=== PATIENT | male | born 1950 | race Caucasian/White ===

== ENCOUNTER 2016-07-19 17:18 | Observation (INO) | payer MEDICARE ==
[2016-07-19] MEDS ORDERED: Morphine INJ* 4 MG/ML 1 ML CARPUJECT IV ONE ×3 (17:58→22:06)
[2016-07-19] MEDS ORDERED: Ondansetron INJ* 2 MG/ML VIAL IV ONE (17:58)
[2016-07-19 18:28] LABS: Hematocrit 41 % (42-52); Mean Corpuscular HGB Conc 34 g/dl (31-36); Mean Corpuscular Hemoglobin 31 pg (27-31); Mean Corpuscular Volume 92 fL (80-94); Mean Platelet Volume 8 um3 (7.4-10.4); Red Blood Count 4.46 10^6/ul (4.0-5.4); Red Cell Distribution Width 13 % (10.5-15); White Blood Count 5.6 10^3/ul (3.5-10.8)
--- NOTE | 2016-07-19 18:47 | RAD ---
INDICATION: Right hip pain COMPARISON: CT May 09, 2016 TECHNIQUE: An AP view of the pelvis and AP views of the hip in neutral and abducted position were obtained FINDINGS: Bones: There is a greater tuberosity fracture. There may be extension into the intratrochanteric region and lateral femoral neck. There is no displacement. There are no other fractures. Joint spaces: The hips articulate normally. The joint spaces are preserved. SI joints/symphysis: The SI joints and symphysis are intact. Other: None IMPRESSION: PROXIMAL RIGHT FEMORAL FRACTURE DESCRIBED.
[2016-07-19 18:49] LABS: Albumin 4.4 g/dL (3.2-5.2); BUN/Creatinine Ratio 23.8 (8-20); Calcium 9.4 mg/dL (8.6-10.3); EGFR Non-African American 96.4 (>60); Globulin 2.9 g/dL (2-4); Potassium 4.1 mmol/L (3.5-5.0); Total Bilirubin 0.4 mg/dL (0.2-1.0); Total Protein 7.3 g/dL (6.4-8.9)
--- NOTE | 2016-07-19 19:52 | RAD ---
INDICATION: Right hip fracture COMPARISON: June 24, 2010 TECHNIQUE: An AP portable view obtained at 1930 hours is submitted FINDINGS: Bones/Soft Tissues: There are no acute bony findings. Cardiomediastinal: The cardiomediastinal silhouette is normal. Lungs: There are no infiltrates. There is old granulomatous disease. Pleura: There are no pleural effusions. Other: None IMPRESSION: NO ACTIVE DISEASE.
--- NOTE | 2016-07-19 20:46 | RAD ---
INDICATION: Right hip fracture COMPARISON: Right hip July 19, 2016 TECHNIQUE: Noncontrast axial source images were obtained from the iliac crests through the symphysis pubis. FINDINGS: The previously described fracture of the proximal right femur is confined to the greater trochanter and represents a comminuted fracture. There is no further extension into the intratrochanteric region. The femur is otherwise unremarkable. Both hips articulate normally. There are no fractures the bony pelvis. The SI joints and symphysis are intact. There is chronic L4 spondylolysis with a grade 1 anterolisthesis of L4 and L5. There are prostatic calcifications. The prostate is normal in size.. No free fluid or adenopathy is seen. There is distention of small bowel with multiple mildly dilated and fluid-filled loops. The colon is normal in caliber. The findings are likely related to an ileus. The superficial soft tissues appear normal. The bladder is mildly distended and there is a contour irregularity with mild anterior herniation. IMPRESSION: 1. Fracture of the right greater trochanter. No other acute fractures. 2. Chronic L4 spondylolysis with grade 1 anterolisthesis. 3. Mildly distended urinary bladder as described. 4. Suspect localized ileus. Suggest a follow-up plain radiograph if indicated.
[2016-07-19] MEDS ORDERED: Docusate CAP* 100 MG PO ONE (22:07)
--- NOTE | 2016-07-19 23:26 | ED ---
Lower Extremity - HPI Summary HPI Summary: Pt here w/ Rt hip pain. Fell prior to arrival. Was moving a metal bar when he lost his footing/tripped and couldn't recover balance. Fell onto Rt side and landed on side of hip. Was able to get up (slowly). Son brought him here today - has been sitting in a wheelchair while waiting. Pain worse w/ any movement of his hip. Denies lumbar pain, radiating pain into LE's, numbness, tingling, weakness, change in bowel/bladder function, ab pain, N/V. Denies hitting his head, nek pain, MOORE, change in vision, photo/phonophobia. No known h/o osteoporosis/-penia. - History of Current Complaint Hx Obtained From: Patient Pain Intensity: 2 <Amita Augsute - Last Filed: 07/19/16 23:21> <Saadia Lacy - Last Filed: 07/21/16 19:40> - History of Current Complaint Chief Complaint: EDHipPelvisInjury Stated Complaint: RT HIP PAIN Time Seen by Provider: 07/19/16 17:34 - Allergies/Home Medications Allergies/Adverse Reactions: Allergies Allergy/AdvReac Type Severity Reaction Status Date / Time Tetracycline Allergy Unknown Verified 07/19/16 17:24 Reaction Details PMH/Surg Hx/FS Hx/Imm Hx Previously Healthy: Yes Endocrine/Hematology History: Denies: Hx Anticoagulant Therapy, Hx Blood Disorders, Hx Diabetes Cardiovascular History: Reports: Hx Angina, Hx Atrial Fibrillation - per pt, takes norvasc for this, Hx Hypertension Denies: Hx Coronary Artery Disease, Hx Hypercholesterolemia, Hx Myocardial Infarction, Hx Valvular Heart Disease Respiratory History: Denies: Hx Asthma, Hx Chronic Obstructive Pulmonary Disease (COPD) Musculoskeletal History: Denies: Hx Rheumatoid Arthritis, Hx Osteoporosis Infectious Disease History: No Infectious Disease History: Denies: Traveled Outside the [place] in Last 30 Days - Family History Known Family History: Positive: None Family History: FHx of kidney stones -- Father - Social History Occupation: Retired Lives: With Family Alcohol Use: Weekly Substance Use Type: Reports: Marijuana - occasionally Smoking Status (MU): Never Smoked Tobacco <Amita Auguste - Last Filed: 07/19/16 23:21> Review of Systems Negative: Fatigue Eyes: Negative Negative: Chest Pain Negative: Shortness Of Breath Gastrointestinal: Negative Positive: see HPI Musculoskeletal: Other - see HPI Negative: Bruising Neurological: Negative Psychological: Normal All Other Systems Reviewed And Are Negative: Yes <Amita Auguste - Last Filed: 07/19/16 23:21> Physical Exam Triage Information Reviewed: Yes Vital Signs On Initial Exam: Initial Vitals Temp Pulse Resp BP Pulse Ox 98.2 F 76 15 129/74 100 07/19/16 17:20 07/19/16 17:20 07/19/16 17:20 07/19/16 17:20 07/19/16 17:20 Vital Signs Reviewed: Yes Appearance: Positive: Well-Appearing, No Pain Distress - at rest however pt appears to be in acute distress which is short lived with any hip movement Skin: Positive: Warm, Dry Head/Face: Positive: Normal Head/Face Inspection Eyes: Positive: Normal, EOMI ENT: Positive: Hearing grossly normal, Pharynx normal - mucosa moist Respiratory/Lung Sounds: Positive: Breath Sounds Present Cardiovascular: Positive: Normal, RRR, Pulses are Symmetrical in both Upper and Lower Extremities Abdomen Description: Positive: Nontender, Soft Bowel Sounds: Positive: Present Musculoskeletal: Positive: Limited @ - any movements of LE d/t pain in hip; femur, knee, tibia and ankle/foot are NTTP, Other - Rt lateral hip TTP; SI joint , lumbar spine NTTP. Negative: Edema Left, Edema Right Neurological: Positive: Sensory/Motor Intact - sensory intact and equal B/L - motor limited d/t pain but he is able to move, Alert, Oriented to Person Place, Time Psychiatric: Positive: Normal - [place] Coma Scale Coma Scale Total: 15 <Amita Auguste - Last Filed: 07/19/16 23:21> Vital Signs On Initial Exam: Initial Vitals Temp Pulse Resp BP Pulse Ox 98.2 F 76 15 129/74 100 07/19/16 17:20 07/19/16 17:20 07/19/16 17:20 07/19/16 17:20 07/19/16 17:20 <Saadia Lacy - Last Filed: 07/21/16 19:40> Diagnostics - Vital Signs Vital Signs Temp Pulse Resp BP Pulse Ox 07/19/16 19:45 16 07/19/16 18:57 98.6 F 76 15 113/65 98 07/19/16 18:12 15 07/19/16 17:20 98.2 F 76 15 129/74 100 - Laboratory Lab Results: Lab Results 07/19/16 07/19/16 Range/Units 18:10 18:10 WBC 5.6 (3.5-10.8) 10^3/ul RBC 4.46 (4.0-5.4) 10^6/ul Hgb 14.0 (14.0-18.0) g/dl Hct 41 L (42-52) % MCV 92 (80-94) fL MCH 31 (27-31) pg MCHC 34 (31-36) g/dl RDW 13 (10.5-15) % Plt Count 276 (150-450) 10^3/ul MPV 8 (7.4-10.4) um3 Neut % (Auto) 61.9 (38-83) % Lymph % (Auto) 20.4 L (25-47) % Overton % (Auto) 12.5 H (1-9) % Eos % (Auto) 4.7 (0-6) % Baso % (Auto) 0.5 (0-2) % Absolute Neuts (auto) 3.4 (1.5-7.7) 10^3/ul Absolute Lymphs (auto) 1.1 (1.0-4.8) 10^3/ul Absolute Monos (auto) 0.7 (0-0.8) 10^3/ul Absolute Eos (auto) 0.3 (0-0.6) 10^3/ul Absolute Basos (auto) 0 (0-0.2) 10^3/ul Absolute Nucleated RBC 0.01 10^3/ul Nucleated RBC % 0.1 Sodium 138 (133-145) mmol/L Potassium 4.1 (3.5-5.0) mmol/L Chloride 104 (101-111) mmol/L Carbon Dioxide 27 (22-32) mmol/L Anion Gap 7 (2-11) mmol/L BUN 19 (6-24) mg/dL Creatinine 0.80 (0.67-1.17) mg/dL Est GFR ( Amer) 124.0 (>60) Est GFR (Non-Af Amer) 96.4 (>60) BUN/Creatinine Ratio 23.8 H (8-20) Glucose 99 (70-100) mg/dL Calcium 9.4 (8.6-10.3) mg/dL Total Bilirubin 0.40 (0.2-1.0) mg/dL AST 21 (13-39) U/L ALT 16 (7-52) U/L Alkaline Phosphatase 81 (34-104) U/L Total Protein 7.3 (6.4-8.9) g/dL Albumin 4.4 (3.2-5.2) g/dL Globulin 2.9 (2-4) g/dL Albumin/Globulin Ratio 1.5 (1-3) Result Diagrams: 07/19/16 18:10 07/19/16 18:10 Lab Statement: Any lab studies that have been ordered have been reviewed, and results considered in the medical decision making process. <Amita Auguste - Last Filed: 07/19/16 23:21> - Vital Signs Vital Signs Temp Pulse Resp BP Pulse Ox 07/20/16 01:44 98.5 F 76 16 122/61 97 07/19/16 19:45 16 07/19/16 18:57 98.6 F 76 15 113/65 98 07/19/16 18:12 15 07/19/16 17:20 98.2 F 76 15 129/74 100 - Laboratory Lab Results: Lab Results 07/19/16 07/19/16 Range/Units 18:10 18:10 WBC 5.6 (3.5-10.8) 10^3/ul RBC 4.46 (4.0-5.4) 10^6/ul Hgb 14.0 (14.0-18.0) g/dl Hct 41 L (42-52) % MCV 92 (80-94) fL MCH 31 (27-31) pg MCHC 34 (31-36) g/dl RDW 13 (10.5-15) % Plt Count 276 (150-450) 10^3/ul MPV 8 (7.4-10.4) um3 Neut % (Auto) 61.9 (38-83) % Lymph % (Auto) 20.4 L (25-47) % Overton % (Auto) 12.5 H (1-9) % Eos % (Auto) 4.7 (0-6) % Baso % (Auto) 0.5 (0-2) % Absolute Neuts (auto) 3.4 (1.5-7.7) 10^3/ul Absolute Lymphs (auto) 1.1 (1.0-4.8) 10^3/ul Absolute Monos (auto) 0.7 (0-0.8) 10^3/ul Absolute Eos (auto) 0.3 (0-0.6) 10^3/ul Absolute Basos (auto) 0 (0-0.2) 10^3/ul Absolute Nucleated RBC 0.01 10^3/ul Nucleated RBC % 0.1 Sodium 138 (133-145) mmol/L Potassium 4.1 (3.5-5.0) mmol/L Chloride 104 (101-111) mmol/L Carbon Dioxide 27 (22-32) mmol/L Anion Gap 7 (2-11) mmol/L BUN 19 (6-24) mg/dL Creatinine 0.80 (0.67-1.17) mg/dL Est GFR ( Amer) 124.0 (>60) Est GFR (Non-Af Amer) 96.4 (>60) BUN/Creatinine Ratio 23.8 H (8-20) Glucose 99 (70-100) mg/dL Calcium 9.4 (8.6-10.3) mg/dL Total Bilirubin 0.40 (0.2-1.0) mg/dL AST 21 (13-39) U/L ALT 16 (7-52) U/L Alkaline Phosphatase 81 (34-104) U/L Total Protein 7.3 (6.4-8.9) g/dL Albumin 4.4 (3.2-5.2) g/dL Globulin 2.9 (2-4) g/dL Albumin/Globulin Ratio 1.5 (1-3) Result Diagrams: 07/19/16 18:10 07/19/16 18:10 Lab Statement: Any lab studies that have been ordered have been reviewed, and results considered in the medical decision making process. <Saadia Lacy - Last Filed: 07/21/16 19:40> Re-Evaluation - Re-Evaluation First Eval Change: Unchanged - s/p morphine 4mg Second Eval Change: Improved - morphine 8mg - still painful w/ movement, especially with attempted ambulation w/ walker <Amita Auguste - Last Filed: 07/19/16 23:21> Lower Extremity Course/Dx - Course Course Of Treatment: Pt here w/ fall onto Rt lateral hip earlier tonight. XR and CT reveal Rt greater trochanter fx only. Spoke w/ Dr. Nguyen who states pt may be d/c'd pending pain control and ambulatory ability. He was road tested with a walker after receiving 2 rounds of morphine IV and reports he does not feel he can maneuver getting home tonight in his current condition as he cannot tolerate sitting to standing to get into his car and has steps into his house which would be too difficult to navigate. His is with him and states she will recruit help for him to transition home tomorrow. Discussed with Dr. Schmidt who will admit pt. - Physician Notifications Discussed Care of Patient With: Dr. Nguyen. Dr. Schmidt <Amita Auguste - Last Filed: 07/19/16 23:21> <Saadia Lacy - Last Filed: 07/21/16 19:40> - Diagnoses Provider Diagnoses: Fracture of greater trochanter of right femur Discharge <Amita Auguste - Last Filed: 07/19/16 23:21> <Saadia Lacy - Last Filed: 07/21/16 19:40> - Discharge Plan Condition: Stable Disposition: ADMITTED TO [facility] User Type: Provider - I was available for consult. This patient was seen by the advanced practice provider. The patient was not presented to, seen by, or examined by me <Saadia Lacy - Last Filed: 07/21/16 19:40>
[2016-07-20] MEDS ORDERED: Morphine INJ* 2 MG/ML 1 ML CARPUJECT IV PRN (01:42)
[2016-07-20] MEDS ORDERED: Cyclobenzaprine TAB* 10 MG PO PRN (01:42)
[2016-07-20] MEDS: Heparin VIAL(*) 5000 UNITS/ML VIAL (FIVE THOUSAND) SUBCUT SCH ×2 (06:17→14:04)
[2016-07-20] MEDS ORDERED: oxyCODONE TAB* 5 MG TAB PO PRN (09:44)
[2016-07-20] MEDS ORDERED: Acetaminophen TAB* 325 MG PO PRN (09:44)
[2016-07-20 12:27] VITALS: BP 112/64
--- NOTE | 2016-07-20 13:07 | HP ---
HISTORY AND PHYSICAL: DATE OF ADMISSION: 07/20/16 PCP: Dr. Lawrence Rodriguez. CHIEF COMPLAINT: Hip pain. HISTORY OF PRESENT ILLNESS: The patient is a 66-year-old gentleman who states that he was picking steel out of a steel rack when he fell backwards and fell on the concrete floor. At that point, he knew something was wrong and he was brought to the hospital immediately. When he tries to move, he was in a lot of pain, but when he is stable, he feels fine. At its worse, it is 8/10 in severity. He had a kidney stone about 6 weeks ago and he states it felt similar to the intensity of pain. In the ED, the patient was evaluated, and was found to have a fracture of the right greater trochanter. Orthopedic states that he did not need any surgery for this, but he is being admitted for intractable back pain. PAST MEDICAL HISTORY: Significant for: 1. Hypertension. 2. Hyperlipidemia. ALLERGIES: He has an allergy/adverse reaction to TETRACYCLINE. CURRENT MEDICATIONS: Include: 1. Multivitamin daily. 2. Aspirin 81 mg daily. 3. Amlodipine 20 mg daily. 4. Lipitor 20 mg daily. FAMILY HISTORY: Mother is alive at 88, alive and well. Father is alive at 99, had CVA and MA. SOCIAL HISTORY: Occasional marijuana, 1 to 2 beers a day. No tobacco. He is retired. He just owns rental properties. He is . He has one son. His Barbara Cohen is his healthcare proxy. REVIEW OF SYSTEMS: A 14-point review of systems was completed with the patient. All pertinent positives and negatives are in the history of present illness; otherwise, it is negative. PHYSICAL EXAMINATION GENERAL: Pleasant gentleman lying in bed, in no acute distress. VITAL SIGNS: Temperature 97.8 degrees, heart rate is 68 beats per minute, respiratory rate is 17 breaths per minute, pulse ox 98%, blood pressure 124/61. HEENT: Normocephalic and atraumatic. Pupils equal, round and reactive to light. Moist mucous membranes. NECK: Supple with no JVD, bruits, palpable thyroid or lymphadenopathy. CHEST: Clear to auscultation and percussion bilaterally. CARDIOVASCULAR: S1, S2 appreciated. Regular rate and rhythm. No murmurs, gallops or rubs. ABDOMEN: Positive bowel sounds in all 4 quadrants. Soft, nontender, nondistended. EXTREMITIES: No cyanosis, clubbing or edema. +2 peripheral pulses bilaterally. NEUROLOGICAL: Alert and oriented x3. He moves all extremities. SKIN: No rashes or abnormalities. DIAGNOSTIC STUDIES/LAB DATA: White count is 5.6, hemoglobin 14.0, hematocrit 41, platelets 276. Sodium is 138, potassium 4.1, chloride is 104, CO2 of 27, BUN 19, creatinine 0.80, glucose is 99. X-ray of the hip and pelvis was interpreted by Radiology as proximal right femoral fracture as described. Chest x-ray was interpreted by Radiology as no active disease. Pelvic CT was interpreted by Radiology as fracture of the right greater trochanter, no other acute fractures, chronic L4 spondylolisthesis with grade 1 anterolisthesis, mild distended urinary bladder described, suspect localized ileus, suggest followup plain radiograph needed. ASSESSMENT AND PLAN: 1. Fracture of the right greater trochanter. The patient has intractable pain from this. We will admit the patient, place on appropriate pain management and Physical Therapy to see. He does not require surgery. The patient should be able to be discharged as early as later today. 2. Hypertension. Stable. Blood pressure under adequate control. No change in regimen. 3. Fluids, electrolytes, and nutrition. Regular diet 4. Deep vein thrombosis prophylaxis. Heparin subcu. 5. The patient is a full code. TIME SPENT: Over 75 minutes were spent on this H and P, and more than 40 minutes of which was spent in direct [id number] contact with the patient in evaluation, physical exam, and counseling, and coordination of care. CC: Dr. Lawrence Rodriguez.* [id number]/[facility] #: [id number] [facility]
[2016-07-20] MEDS ORDERED: Atorvastatin* 20 MG TAB PO SCH (17:00)
--- NOTE | 2016-07-21 00:43 | DS ---
DISCHARGE SUMMARY: DATE OF ADMISSION: 07/20/16 DATE OF DISCHARGE: 07/20/16 PRIMARY CARE PROVIDER: Dr. Rodriguez. ORTHOPEDIST: Nelia Nguyen MD DISCHARGE DIAGNOSIS: Right greater trochanter fracture. SECONDARY DIAGNOSES: 1. Hypertension. 2. Hyperlipidemia. 3. Angina. 4. Obstructive sleep apnea. MEDICATIONS: 1. Multivitamin 1 tablet p.o. daily. 2. Aspirin 81 mg p.o. daily. 3. Amlodipine 20 mg p.o. daily. 4. Atorvastatin 20 mg p.o. daily. New medication: Oxycodone 5 mg p.o. q.6 hours p.r.n. pain MDD 20 mg daily, dispensed 10 tablets, no refill. The [facility] Prescription Monitoring Program was consulted and he had last received a 4-day supply of oxycodone on 05/09/16. Reference number is [id number]. HOSPITAL COURSE: Mr. Rivera is a 66-year-old male with a past medical history as stated above that sustained a fall on the concrete floor and developed severe right hip pain. In the emergency room, he had a hip and pelvis x-ray that showed a greater tuberosity fracture, with maybe extension into the intertrochanteric region and lateral femoral neck. He underwent a CT of the pelvis that showed a fracture of the right greater trochanter but no other acute fractures. The patient was admitted for pain management. I discussed this case with consulting orthopedist (Dr. Nguyen), and her recommendation was for pain management, weightbearing as tolerated in the right lower extremity and to follow up with her as outpatient this coming week. The patient actually declined taking oxycodone in the hospital and was able to work with physical therapy after taking Tylenol. He was able to ambulate 200 feet with a rolling walker and although his gait was slow and antalgic, he was felt to be safe and steady with the walker. He was also able to climb 13 stairs and received education about it. He was felt to be safe for discharge home at this time and case aide assisted with arrangements for front wheeled walker for discharge. He received information to call Dr. Nguyen's office tomorrow to schedule his followup appointment. He is medically stable for discharge at this time. PHYSICAL EXAMINATION: Vital Signs: Temperature 98.6, heart rate 71, respiratory rate 16, oxygen saturation 98% on room air, blood pressure 112/64. General: The patient is a pleasant gentleman lying in bed in no acute distress. CV: S1, S2. Regular rate and rhythm. Chest: Breath sounds present bilaterally with no added sounds. Extremities: There is no cyanosis. No hematoma or edema around the right hip. Neuro: He is alert, awake, and oriented x3. He is able to move all 4 extremities. DIET: Heart healthy diet. ACTIVITY: Weightbearing to the lower extremity as tolerated. DISPOSITION: To home. STATUS WHILE IN THE HOSPITAL: Observation. If you need more information, please feel free to call me at [phone] or please obtain the full medical records. TIME SPENT: Approximately 45 minutes were spent to complete this discharge. CC: Dr. Rodriguez; Nelia Nguyen MD* [id number]/[facility] #: [id number] [facility]TD[facility]
== END 2016-07-20 14:45 | disposition home or self-care (01) ==
LOC: ED 17:18 → MED 07-20 03:03
PROVIDERS: ADMIT Internal Medicine; ATTEND Internal Medicine
DX: S72.111A Displaced fracture of greater trochanter of right femur, initial encounter for closed fracture (principal); W01.0XXA Fall on same level from slipping, tripping and stumbling without subsequent striking against object, initial encounter; Y93.89 Activity, other specified; Y92.9 Unspecified place or not applicable; I10 Essential (primary) hypertension; E78.5 Hyperlipidemia, unspecified; I20.9 Angina pectoris, unspecified; G47.33 Obstructive sleep apnea (adult) (pediatric); Z79.82 Long term (current) use of aspirin; Z79.899 Other long term (current) drug therapy; Z88.8 Allergy status to other drugs, medicaments and biological substances
CPT/HCPCS: 36415; 71010; 72192; 80053; 85025; 96372; 96374; 96375; 96376; 99284; A9270-GY; G8978-GP-CL; G8979-GP-CI; J1644; J2270; J2405

== ENCOUNTER 2017-11-20 07:15 | Day surgery (SDC) | payer MEDICARE ==
--- NOTE | 2017-11-13 15:12 | HP ---
PREOPERATIVE HISTORY AND PHYSICAL: DATE OF ADMISSION/SURGERY: 11/20/17 - OR [facility] DATE OF OFFICE VISIT/ENCOUNTER: 11/12/17 ATTENDING SURGEON: Nelia Nguyen MD.* (DICTATED BY TABITHA MARTINEZ) POWERHOUSE TENDER: Dr. Hay. PROCEDURE: Left ring phalanx open reduction and internal fixation. HISTORY OF PRESENT ILLNESS: This is a 67-year-old male who sustained injury to his left ring finger on 10/04/17 when he fell on a rock and jammed his finger. X- rays showed a small fracture of the dorsal aspect of the middle phalanx. Despite splinting and physical therapy, he is still having trouble fully extending the PIP joint. Dr. Nguyen is recommending surgical intervention at this time for best outcome. The patient is followed by Dr. Hay for history of atrial fibrillation and angina. He was last seen in February 2017. We will get clearance from Dr. Hay prior to proceeding with surgery. PAST MEDICAL HISTORY: 1. History of atrial fibrillation. 2. History of angina. 3. Hypertension. 4. Hypercholesterolemia. 5. Sleep apnea, with a CPAP. PAST SURGICAL HISTORY: 1. Tonsillectomy. 2. Facial surgery for a fractured mandible. CURRENT MEDICATIONS: 1. Aspirin 81 mg daily. 2. Calcium daily. 3. Centrum Silver daily. 4. Lipitor 20 mg daily. 5. Nitrostat 0.4 mg 1 sublingual q. 5 minutes up to 3 doses p.r.n. 6. Norvasc 10 mg 1 tab daily. ALLERGIES: No known drug allergies. FAMILY MEDICAL HISTORY: Significant for heart disease, hypertension, stroke, myocardial infarction, and high cholesterol. SOCIAL HISTORY: The patient owns several rental properties. He denies tobacco use. He does smoke marijuana on a regular basis and also drinks alcohol on occasion. REVIEW OF SYSTEMS: General: Negative for fevers, chills, or night sweats, unexplained weight loss or gain. No known anesthesia problems. HEENT: Negative for headache, lightheadedness, syncopal episodes, visual changes. Integumentary: Negative for abrasions, lesions, or open wounds. Cardiothoracic : Negative for hypertension, chest pain, palpitations, edema. Pulmonary: Negative for shortness of breath with exertion, chronic cough, wheezing. GI: Negative for nausea, vomiting, diarrhea, constipation, GERD. : Negative for nocturia, urinary frequency, urgency, history of UTIs, kidney problems. Musculoskeletal: Positive for current complaint. Negative for chronic or intermittent back pain. Neurological: Negative for paresthesias, numbness, history of seizure, stroke, poor balance. Endocrine: Negative for diabetes and thyroid issues. Hematologic: Negative for easy bruising, anemia, bleeding disorders, history of DVT. Infectious Disease: Negative for history of MRSA, hepatitis C, HIV. PHYSICAL EXAMINATION GENERAL: Well-developed, well-nourished, 67-year-old male, in no acute distress. VITAL SIGNS: Height 6 feet tall, weight 160 pounds, pulse rate 74, blood pressure 120/72. HEENT: Normocephalic, atraumatic. Pupils are equal, round, and reactive to light and accommodation. Extraocular movements are intact. Throat is clear. NECK: Supple. No palpable lymph nodes. PULMONARY: Lungs are clear to auscultation bilaterally. No wheezes, rales, or rhonchi. CARDIOVASCULAR: Regular rate and rhythm. S1, S2. No murmurs, rubs, or gallops. No edema. ABDOMEN: Positive bowel sounds, soft, nontender. NEUROLOGICAL: Alert and oriented x3. Cranial nerves II through XII are intact. Sensation is intact to light touch. MUSCULOSKELETAL: On exam of the left ring finger, there is swelling at the PIP joint and there is tenderness to palpation over the dorsal aspect of the joint. There is a flexion deformity at the PIP joint and the patient is unable to fully extend. He has difficulty with full flexion as well. Neurovascular function and skin are intact. IMAGING STUDIES: X-rays of the left ring finger show a small amount of subluxation of the PIP joint and the fracture is not healed. IMPRESSION: Status post left ring finger with insufficient healing and subluxation of PIP joint. PLAN: The patient is scheduled to undergo a left ring phalanx open reduction and internal fixation with Dr. Nguyen on 11/20/17. He will return to the office 10 days postop for followup and suture removal. For postoperative pain management, the patient prefers to use a marijuana/alcohol tincture and we will get clearance from his flush tester, Dr. Hay, prior to proceeding with surgery. TABITHA MARTINEZ [id number]/[facility] #: [id number] [facility]
[~2017-11-20 07:15] MED LIST: Buffered Lidocaine 0.9% SYRIN* 5 ML/SYR SYRINGE INTRADERM ONE
[2017-11-20] MEDS ORDERED: ceFAZolin 2 GM PREMIX (*) 2 GM/50 ML BAG IVPB ONE (07:25)
[2017-11-20] MEDS ORDERED: fentaNYL* 50 MCG/ML 2 ML VIAL (100 MCG VIAL) ONE (08:10)
[2017-11-20] MEDS ORDERED: Lidocaine 2% PF * 5 ML VIAL ONE (08:12)
[2017-11-20] MEDS ORDERED: Propofol* 10 MG/ML 20 ML BTL IV PUSH ONE ×2 (08:12)
[2017-11-20] MEDS ORDERED: Lidocaine 1% INJ* 10 MG/ML 30 ML SDV ONE (08:28)
[2017-11-20] MEDS ORDERED: oxyCODONE/Acetamin 5/325 MG* TAB PO PRN (08:48)
[2017-11-20] MEDS ORDERED: fentaNYL* 50 MCG/ML 2 ML VIAL (100 MCG VIAL) IV PRN (08:48)
[2017-11-20] MEDS ORDERED: oxyCODONE TAB* 5 MG TAB PO PRN (08:48)
[2017-11-20] MEDS ORDERED: Naloxone* 0.4 MG/ML 1 ML VIAL IV PRN (08:48)
[2017-11-20] MEDS ORDERED: Acetaminophen TAB* 325 MG PO PRN (08:48)
[2017-11-20] MEDS ORDERED: HYDROmorphone INJ* 1 MG/ML CARPUJECT SYRINGE IV PRN (08:48)
[2017-11-20] MEDS ORDERED: Ondansetron INJ* 2 MG/ML VIAL IV PRN (08:48)
[2017-11-20] MEDS ORDERED: Ketorolac INJ* 30 MG/ML 1 ML VIAL ONE (09:14)
[2017-11-20 09:58] VITALS: BP 112/69
--- NOTE | 2017-11-20 22:00 | RAD ---
INDICATION: Percutaneous pinning left ring finger COMPARISON: None FINDINGS: 47 seconds of fluoroscopy were provided for the orthopedics department. Fluoroscopic spot imaging of the left ring finger were obtained for operative control and show percutaneous pinning at the PIP joint . CPT II Codes: G9500 (fluoro time doc)
--- NOTE | 2017-11-21 04:25 | OP ---
DATE OF OPERATION: 11/20/17 - [facility] DATE OF : 48 SURGEON: Dr. Nguyen TURRET PRESS OPERATOR: TABITHA Pickard ANESTHESIA: Local MAC. PRE-OP DIAGNOSIS: Left ring finger middle phalanx fracture, subluxation at the PIP joint. POST-OP DIAGNOSIS: Left ring finger middle phalanx fracture, subluxation at the PIP joint. OPERATIVE PROCEDURE: Open reduction and internal fixation, left ring finger middle phalanx. ESTIMATED BLOOD LOSS: Zero. TOURNIQUET TIME: About 30 minutes. INDICATIONS FOR PROCEDURE: Cornel is a 59-year-old male who injured his left ringer finger. He has a fracture of the dorsal aspect of the middle phalanx at the PIP joint which has gradually displaced and the joint has subluxed. He presents for ORIF of left ringer finger middle phalanx. DESCRIPTION OF PROCEDURE: The patient was brought to the operating room, was given a sedation anesthetic and digital block with 10 cc of 1% plain lidocaine. The skin of the left hand and forearm was prepped and draped in the usual sterile fashion. The hand and forearm were exsanguinated and the tourniquet elevated to 250 mmHg. A curved longitudinal incision was made centered over the PIP joint and we dissected sharply full thickness skin flap down to the extensor mechanism. The fracture fragment was carefully dissected sharply away from the PIP joint. It was still well attached to the extensor tendon. I was able to gain access to the joint then by flexing the joint and the collateral ligaments, which were scarred down were partially incised so that I could reduce the main portion of the middle phalanx back to the proximal phalanx. Next, 2 holes for mini Mitek suture anchors were drilled into the metaphyseal area of the middle phalanx and then the joint was reduced and a single 0.035 inch K-wire was driven through the proximal phalanx into the volar aspect of the middle phalanx. It position was checked on the C-arm in the AP and lateral views, as was the position of the suture anchors. All were found to be in good position. The sutures were then driven through the bony fragment attached to the extensor tendon after the fracture bed was curetted and then they were tied to reapproximate this fragment to the main fragment of the bone at the PIP joint. The wound was irrigated. The remainder of the extensor mechanism was repaired with a 2-0 Ethibond suture. The skin edges were reapproximated with 4- 0 nylon suture. The wound was dressed with Xeroform, 4x4, Webril, Coban and the splint with the MP joint flexed, PIP straight and the DIP joint free to move. The patient tolerated the procedure well and was brought to the recovery room in good condition. [id number] #: [id number] MTDEvie
== END 2017-11-20 10:13 | disposition home or self-care (01) ==
LOC: OREAST 07:15
PROVIDERS: ATTEND Orthopaedic Surgery
DX: S62.625A Displaced fracture of middle phalanx of left ring finger, initial encounter for closed fracture (principal); I48.91 Unspecified atrial fibrillation; I20.9 Angina pectoris, unspecified; I10 Essential (primary) hypertension; E78.5 Hyperlipidemia, unspecified; G47.33 Obstructive sleep apnea (adult) (pediatric); W19.XXXA Unspecified fall, initial encounter; Y92.9 Unspecified place or not applicable
CPT/HCPCS: 76000; C1713; C1776; J0690; J1885; J2704; J3010

== ENCOUNTER 2018-12-09 06:45 | Day surgery (SDC) | payer MEDICARE ==
[2018-12-09] MEDS ORDERED: Bupivacaine 0.25% SDV* 30 ML ONE (07:41)
[2018-12-09 09:13] VITALS: BP 121/59
--- NOTE | 2018-12-09 13:39 | OP ---
DATE OF OPERATION: 12/09/18 - [facility] DATE OF : 48 SURGEON: Aung Alas MD. ROD PULLER AND COILER: TABITHA Catalan. ANESTHESIOLOGIST: None. ANESTHESIA: Local only with 1% lidocaine with epinephrine and bicarbonate. 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 OPERATIVE PROCEDURE: 1. Left ring finger extensor tendon tenolysis. 2. Release of left ring finger proximal interphalangeal joint contracture. INDICATIONS: Cornel has had a central slip avulsion fracture. It was treated surgically on a delayed basis. It looks like the bone healed, but he has developed a loss of the ability to fully flex the finger down. This is secondary to some loss of full flexion at the DIP joint as well, but that is more of a flexor tendon problem. The PIP joint has a rigid contracture. We talked about risks and benefits. He understands the risk of incomplete recovery despite full release intraoperatively with recurrent stiffness. He knows he will have to work hard to get back the FDP pulling through completely on the benedict side as well. ESTIMATED BLOOD LOSS: 5 mL. COMPLICATIONS: None. FINDINGS: See above and below. DESCRIPTION OF PROCEDURE: Cornel was seen in the preoperative holding area. The correct side and site of the procedure were identified. I infiltrated the operative area with buffered lidocaine. We came back to the operating room, where the arm was prepped and draped in the usual fashion and time-out was performed. I placed a little bit of Marcaine around my prior site of the digital block, went ahead and placed a finger tourniquet on the finger. I reopened the prior incision and extended just a little bit proximally. There was dense scar tissue attached to the tendons. I went ahead and performed a full extensor tendon tenolysis, releasing the scar tissue that developed between the skin and the subcutaneous tissue in the tendon, but also I opened up the intervals between the central slips and the lateral band and performed a full tenolysis between the bone and the extensor tendon, where most of the tendon adhesions were. Once I had performed a full tenolysis, I could flex and extend the finger. The contracture was improved, but certainly not fully corrected. I took the [place] blade and I released a little bit of the origins of the radial and ulnar collateral ligaments as well as the dorsal capsule in its entirety. The dorsal capsule was excised. I then had to flex and extend the fingers and we achieved full correction of the PIP joint extension contracture. I performed a full manipulation to release any remaining little bands of tissue that might be persisting. At this point, I had full passive flexion compared to the adjacent digits. He also was able to generate full active flexion at the PIP joint. The DIP joint had some residual lag. He was not getting full pull-through at the FDP tendon; however, I could passively flex the DIP joint fully. At this point, everything was looking good. We irrigated out the wound and I placed a couple of 5- 0 Prolene stitches, where I had developed the split between the central slip and the lateral band. The wound was irrigated out again. Skin was closed with 4-0 nylon. A very thin soft dressing was applied and tourniquet was released. He was taken to the recovery room in stable condition. [id number] #: [id number] KINZA
== END 2018-12-09 09:24 | disposition home or self-care (01) ==
LOC: OREAST 06:45
PROVIDERS: ATTEND Orthopaedic Surgery Hand Surgery
DX: M24.542 Contracture, left hand (principal); I10 Essential (primary) hypertension; G47.33 Obstructive sleep apnea (adult) (pediatric); E78.00 Pure hypercholesterolemia, unspecified; I48.0 Paroxysmal atrial fibrillation; I20.9 Angina pectoris, unspecified; Z79.82 Long term (current) use of aspirin
CPT/HCPCS: J3490

== ENCOUNTER 2019-01-27 21:23 | Emergency (ER) | payer MEDICARE ==
[2019-01-27] MEDS ORDERED: Naproxen TAB* 250 MG PO ONE (22:20)
--- NOTE | 2019-01-27 23:19 | ED ---
Upper Extremity Pain - HPI Summary HPI Summary: 68-year-old male presents with complaints of left wrist pain after accidentally falling onto his outstretched arm. Patient states that he was trying to push some garbage down into the garbage can with his foot when he lost his balance and fell. States this occurred approximately an hour and a half prior to arrival. He complains of pain to the radial and ulnar aspect of the wrist. Patient reports significant bruising and swelling. Denies any numbness or tingling. - History of Current Complaint Chief Complaint: EDExtremityUpper Stated Complaint: LT WRIST INJUJRT PER PT Time Seen by Provider: 01/27/19 22:12 Hx Obtained From: Patient - Allergies/Home Medications Allergies/Adverse Reactions: Allergies Allergy/AdvReac Type Severity Reaction Status Date / Time No Known Allergies Allergy Verified 01/27/19 21:43 PMH/Surg Hx/FS Hx/Imm Hx Endocrine/Hematology History: Denies: Hx Anticoagulant Therapy, Hx Blood Disorders, Hx Diabetes Cardiovascular History: Reports: Hx Angina, Hx Atrial Fibrillation - per pt, takes norvasc for this, Hx Coronary Artery Disease, Hx Hypercholesterolemia, Hx Hypertension - ON MEDS PT. STATES CONTROLLED, Other Cardiovascular Problems/ Disorders - OCCASIONAL AFIB Denies: Hx Deep Vein Thrombosis, Hx Myocardial Infarction, Hx Valvular Heart Disease Respiratory History: Reports: Hx Sleep Apnea Denies: Hx Asthma, Hx Chronic Obstructive Pulmonary Disease (COPD) History: Reports: Hx Kidney Stones Musculoskeletal History: Reports: Other Musculoskeletal History - BROKEN FINGER Denies: Hx Rheumatoid Arthritis, Hx Osteoporosis Sensory History: Reports: Hx Cataracts - BILAT Denies: Hx Contacts or Glasses, Hx Hearing Aid Opthamlomology History: Reports: Hx Cataracts - BILAT Denies: Hx Contacts or Glasses - Surgical History Surgery Procedure, Year, and Place: FIXED LT CHEEK 2007;BI-LATERAL CATARACT 1989; TONSILLECTOMY A CHILD Hx Anesthesia Reactions: No Infectious Disease History: No Infectious Disease History: Denies: Hx Clostridium Difficile, Traveled Outside the [place] in Last 30 Days - Family History Known Family History: Positive: Non-Contributory Family History: FHx of kidney stones -- Father - Social History Occupation: Employed Full-time Lives: With Family Alcohol Use: Occasionally Alcohol Amount: BEER X 5 WEEKLY Substance Use Type: Reports: Marijuana Substance Use Comment - Amount & Last Used: SMOKES 1 X WEEKLY Smoking Status (MU): Never Smoked Tobacco Review of Systems Constitutional: Negative Cardiovascular: Negative Respiratory: Negative Gastrointestinal: Negative Genitourinary: Negative Musculoskeletal: Other - See HPI Positive: Bruising Neurological: Negative All Other Systems Reviewed And Are Negative: Yes Physical Exam - Summary Physical Exam Summary: GENERAL APPEARANCE: Alert and cooperative adult male who appears to be in no acute distress. CARDIAC: Normal S1 and S2. No S3, S4 or murmurs. Rhythm is regular. There is no peripheral edema, cyanosis or pallor. Extremities are warm and well perfused. Capillary refill is less than 2 seconds. Peripheral pulses intact. LUNGS: Clear to auscultation without rales, rhonchi, wheezing or diminished breath sounds. ABDOMEN: Positive bowel sounds. Soft, nondistended, nontender. No guarding or rebound. No masses or hepatosplenomegally. MUSKULOSKELETAL: Normal muscular development. Normal gait. EXTREMITIES: Tenderness over the distal left ulna and radius with no gross deformity. Significant ecchymosis and edema were present. Circulation and sensation was intact. SKIN: Skin normal color, texture and turgor. Triage Information Reviewed: Yes Vital Signs On Initial Exam: Initial Vitals Temp Pulse Resp BP Pulse Ox 98.7 F 68 16 138/84 98 01/27/19 21:40 01/27/19 21:40 01/27/19 21:40 01/27/19 21:40 01/27/19 21:40 Vital Signs Reviewed: Yes Diagnostics - Vital Signs Vital Signs Temp Pulse Resp BP Pulse Ox 01/27/19 21:40 98.7 F 68 16 138/84 98 - Laboratory Lab Statement: Any lab studies that have been ordered have been reviewed, and results considered in the medical decision making process. - Radiology No standard instances Radiology Interpretation Completed By: ED Physician - Nondisplaced fracture of the distal radius. Nondisplaced fracture of the distal ulna. Mildly displaced fracture of the ulnar styloid. Course/Dx - Course Course Of Treatment: 68-year-old male presents with complaints of left wrist pain after accidentally falling onto his outstretched arm. Patient states that he was trying to push some garbage down into the garbage can with his foot when he lost his balance and fell. States this occurred approximately an hour and a half prior to arrival. He complains of pain to the radial and ulnar aspect of the wrist. Patient reports significant bruising and swelling. Denies any numbness or tingling. Afebrile. Vital signs stable. Patient had tenderness over the distal left ulna and radius with no gross deformity. Significant ecchymosis and edema were present. Circulation and sensation was intact. Patient was given naproxen 500 mg PO for pain. My preliminary read the x-ray revealed a mildly displaced fracture of the ulnar styloid, a nondisplaced fracture of the distal ulna, and a nondisplaced fracture of the distal radius. He was placed in a volar short arm splint by myself using Ortho-Glass. Circulation sensation were normal pre-and post-application. Recommending conservative treatment including [id number] analgesics and RICE. He is to follow-up with orthopedic surgery and 3-5 days for further evaluation and treatment. Splint care, and anticipatory guidance, and warning symptoms were reviewed with the patient. Verbalizes understanding and agrees with plan of care. - Diagnoses Provider Diagnoses: Nondisplaced fracture of distal end of left ulna, Nondisplaced fracture of distal end of left radius, Displaced fracture of styloid process of left ulna Discharge - Sign-Out/Discharge Documenting (check all that apply): Patient Departure Patient Received Moderate/Deep Sedation with Procedure: No - Discharge Plan Condition: Stable Disposition: HOME Patient Education Materials: Wrist Fracture in Adults (ED), Splint Care (ED) Referrals: Lawrence Rodriguez MD [Primary Care Provider] - Aung Jarrett MD [Medical Doctor] - 3 Days (Call tomorrow for appointment.) Additional Instructions: The x-ray performed in the clinic today showed evidence of a fracture to the distal radius and ulna including a mildly displaced fracture of the ulnar styloid process. Rest the arm as much as possible. You will need to wear the splint that was applied at all times. Do not get this wet. Apply ice to the affected area for 15-20 minutes at least 4 times a day to help with the pain and swelling. Elevate the arm to help reduce swelling. Take acetaminophen (Tylenol) or ibuprofen (Advil, Motrin) according to directions as needed for pain. Follow up with orthopedic surgery in 3-5 days for further evaluation and treatment. Call tomorrow for an appointment. Seek immediate medical attention if you have severe pain not managed with pain medication, develop numbness or tingling in the hand or fingers, or any worsening of symptoms. - Billing Disposition and Condition Condition: STABLE Disposition: Home - Attestation Statements Provider Attestation: pt seen by midlevel provider independently, based on their assessment, it was not necessary to present the case to me but I was available for consultation. I did not form a physician-patient relationship with the patient. The chart however, has been reviewed. am signing this note strictly in an administrative capacity.
[2019-01-27 23:42] VITALS: BP 136/72
== END 2019-01-27 23:34 | disposition home or self-care (01) ==
LOC: ED 21:23
DX: S52.602A Unspecified fracture of lower end of left ulna, initial encounter for closed fracture (principal); S52.502A Unspecified fracture of the lower end of left radius, initial encounter for closed fracture; S52.612A Displaced fracture of left ulna styloid process, initial encounter for closed fracture; W19.XXXA Unspecified fall, initial encounter; Y92.9 Unspecified place or not applicable; I25.119 Atherosclerotic heart disease of native coronary artery with unspecified angina pectoris; I48.91 Unspecified atrial fibrillation; E78.00 Pure hypercholesterolemia, unspecified; I10 Essential (primary) hypertension; Z79.899 Other long term (current) drug therapy
CPT/HCPCS: 99282; A9270-GY

== ENCOUNTER 2019-02-04 02:57 | Emergency (ER) | payer MEDICARE ==
--- NOTE | 2019-02-04 03:31 | ED ---
Upper Extremity Pain - HPI Summary HPI Summary: This pt is a 68 y/o [facility] worsening left upper extremity pain since yesterday. He notes he had an accidental fall on 01/27/19 with a back stretched arm and sustained a left wrist fracture. Pt followed up with orthopedics and had a cast placed 3 days ago. Ever since pt notes he has been having pain in his left arm, pt states the left wrist pain is better than the pain that is going up his left arm. He notes "it seems like the pain is growing upwards." He has taken muscle relaxers with no effect. Pt reports his pain has been worsening in the past 24 hours. He has also been taking ibuprofen with no relief. Pt states a splint he had prior to his cast was better and did not cause him any pain. - History of Current Complaint Stated Complaint: PAIN IN ARM PER PT Hx Obtained From: Patient Mechanism Of Injury: Blunt Trauma, Fall From A Standing Position Onset/Duration: Still Present Timing: Lasting Days Severity Currently: Severe Pain Location: Other: - Left upper extremity Aggravating Factor(s): Nothing Alleviating Factor(s): Nothing Associated Signs & Symptoms: Positive: Negative - Allergies/Home Medications Allergies/Adverse Reactions: Allergies Allergy/AdvReac Type Severity Reaction Status Date / Time No Known Allergies Allergy Verified 02/04/19 03:03 Home Medications: Home Medications Albuterol HFA INHALER* [Ventolin HFA Inhaler*] 2 puff INH Q4H PRN 02/04/19 [ History Confirmed 02/04/19] Cyclobenzaprine HCl 5 mg PO TID PRN 02/04/19 [History Confirmed 02/04/19] Magnesium Oxide TAB* [MagOx 400 TAB*] 400 mg PO DAILY 02/04/19 [History Confirmed 02/04/19] Metoprolol Succinate 25 mg PO DAILY 02/04/19 [History Confirmed 02/04/19] PMH/Surg Hx/FS Hx/Imm Hx Endocrine/Hematology History: Denies: Hx Anticoagulant Therapy, Hx Blood Disorders, Hx Diabetes Cardiovascular History: Reports: Hx Angina, Hx Atrial Fibrillation - per pt, takes norvasc for this, Hx Coronary Artery Disease, Hx Hypercholesterolemia, Hx Hypertension - ON MEDS PT. STATES CONTROLLED, Other Cardiovascular Problems/ Disorders - OCCASIONAL AFIB Denies: Hx Deep Vein Thrombosis, Hx Myocardial Infarction, Hx Valvular Heart Disease Respiratory History: Reports: Hx Sleep Apnea Denies: Hx Asthma, Hx Chronic Obstructive Pulmonary Disease (COPD) History: Reports: Hx Kidney Stones Musculoskeletal History: Reports: Other Musculoskeletal History - BROKEN FINGER Denies: Hx Rheumatoid Arthritis, Hx Osteoporosis Sensory History: Reports: Hx Cataracts - BILAT Denies: Hx Contacts or Glasses, Hx Hearing Aid Opthamlomology History: Reports: Hx Cataracts - BILAT Denies: Hx Contacts or Glasses - Surgical History Surgery Procedure, Year, and Place: FIXED LT CHEEK 2007;BI-LATERAL CATARACT 1989; TONSILLECTOMY A CHILD Hx Anesthesia Reactions: No Infectious Disease History: No Infectious Disease History: Denies: Hx Clostridium Difficile, Traveled Outside the [place] in Last 30 Days - Family History Family History: FHx of kidney stones -- Father - Social History Alcohol Use: Occasionally Alcohol Amount: BEER X 5 WEEKLY Substance Use Type: Reports: Marijuana Substance Use Comment - Amount & Last Used: SMOKES 1 X WEEKLY Smoking Status (MU): Never Smoked Tobacco Review of Systems Negative: Fever, Chills Positive: Palpitations Respiratory: Negative Musculoskeletal: Other - POSITIVE: left upper extremity All Other Systems Reviewed And Are Negative: Yes Physical Exam - Summary Physical Exam Summary: Appearance: Well-appearing, Well-nourished, lying in bed comfortable Skin: Warm, dry, no obvious rash Eyes: sclera anicteric, no conjunctival pallor ENT: mucous membranes moist Neck: deferred Respiratory: No signs of respiratory distress Cardiovascular: Appears well perfused, pulses are nml Abdomen: deferred Musculoskeletal: Short arm cast in left arm that appears somewhat loose. No significant swelling in the digits distal to the cast. Left shoulder seems to have good ROM and does not have focal tenderness. Neurological: Awake and alert, mentation is normal, speech is fluent and appropriate Psychiatric: affect is normal, does not appear anxious or depressed Triage Information Reviewed: Yes Vital Signs On Initial Exam: Initial Vitals Temp Pulse Resp BP Pulse Ox 97.6 F 95 16 186/86 98 02/04/19 03:00 02/04/19 03:00 02/04/19 03:00 02/04/19 03:00 02/04/19 03:00 Vital Signs Reviewed: Yes Procedures - Splinting Left Upper Extremity Location: left wrist Splint: volar Pre-Proc Neuro Vasc Exam: normal Post-Proc Neuro Vasc Exam: normal Diagnostics - Vital Signs Vital Signs Temp Pulse Resp BP Pulse Ox 02/04/19 03:00 97.6 F 95 16 186/86 98 - Laboratory Lab Statement: Any lab studies that have been ordered have been reviewed, and results considered in the medical decision making process. - EKG 03:35 Cardiac Rate: NL - at 77 bpm EKG Rhythm: Sinus Rhythm Summary of EKG Findings: NSR at 77 BPM, P waves, QRS complex, and T waves are within normal limits, T waves and intervals are normal, no ischemic changes. This is a normal EKG. Course/Dx - Course Assessment/Plan: Pt is a 68 y/o male presenting to [facility] c/o worsening left upper extremity pain since yesterday. He sustained a left wrist fracture on 01/27. Pt followed up with orthopedics and had a cast placed 3 days ago. Ever since pt notes he has been having pain in his left arm, pt states the left wrist pain is better than the pain that is going up his left arm. Troponin is 0.00. EKG shows normal sinus rhythm at 77 bpm. I took off his cast and placed him in a volar splint per patient's request. Pt is neurovascular intact pre and post procedure. He was discharged home with follow up from orthopedics. - Diagnoses Provider Diagnoses: Shoulder pain Discharge - Sign-Out/Discharge Documenting (check all that apply): Patient Departure - Discharge home Patient Received Moderate/Deep Sedation with Procedure: No - Discharge Plan Condition: Good Disposition: HOME Patient Education Materials: Shoulder Pain (ED) Referrals: Lawrence Rodriguez MD [Primary Care Provider] - Additional Instructions: Call the orthopedic office tomorrow to let them know that we removed the cast, they will likely want to replace it soon and check out the rest of the pains in the shoulder. Using the splint will take some stress off the shoulder in the meantime. The cardiac tests we ran were negative, so no worries about this being a separate cardiac issue. - Billing Disposition and Condition Condition: GOOD Disposition: Home - Attestation Statements Document Initiated by Scribe: Yes Documenting Scribe: Jes Rubin Provider For Whom Scribe is Documenting (Include Credential): Arnulfo Pascual MD Scribe Attestation: Jes Blanco, scribed for Arnulfo Pascual MD on 02/05/19 at 0615. Scribomaira Documentation Reviewed: Yes Provider Attestation: The documentation as recorded by the scribe, Jes Rubin accurately reflects the service I personally performed and the decisions made by me, Arnulfo Pascual MD Status of Scrinez Document: Viewed
[2019-02-04 05:09] VITALS: BP 160/95
== END 2019-02-04 05:08 | disposition home or self-care (01) ==
LOC: ED 02:57
DX: M25.512 Pain in left shoulder (principal); I48.91 Unspecified atrial fibrillation; I25.119 Atherosclerotic heart disease of native coronary artery with unspecified angina pectoris; E78.00 Pure hypercholesterolemia, unspecified; I10 Essential (primary) hypertension; Z79.899 Other long term (current) drug therapy
CPT/HCPCS: 36415; 84484; 93005; 99282

== ENCOUNTER 2019-03-10 18:26 | Observation (INO) | payer MEDICARE ==
--- NOTE | 2019-03-10 18:55 | ED ---
Neurological HPI - HPI Summary HPI Summary: Jaqueline iqbal has been called for the patient at 1838. Time seen by provider: 184. 68 year old M presenting to [facility] with a chief complaint of neurological deficit since earlier today 03/10/19. Patient has been experiencing vision problems since his heart catheterzation procedure earlier today. Patient describes his vision as 'shutters' comparable to 'old movies', flashing. Patient reports inability to read, headache, and dizziness. At one point the patient had a near-syncopal event. The neurological deficit episode lasted approximately twenty minutes. Patient was aware and oriented upon arrival to the ED. Vision has improved since onset, and patient denies any other problems except a persistent headache. Patient currently does not feel anything unusual. - History of Current Complaint Chief Complaint: EDNeurologicalDeficit Stated Complaint: POSS BLOOD CLOT PER PT Time Seen by Provider: 03/10/19 18:41 Hx Obtained From: Patient Onset/Duration: Started hours ago, Resolved Onset Severity: Moderate Current Severity: Mild Neurological Deficit Location: Generalized Headache Location: Diffuse (Right), Diffuse (Left) Pain Intensity: 0 Pain Scale Used: 0-10 Numeric Character: Dizzy, Visual Changes, Other: - a near-syncopal event Episode Lasting: Seconds/Minutes - 20 minutes, approximately Frequency: Episodes x___ - 1 Aggravating: Unknown, Nothing Alleviating: Nothing Associated Signs and Symptoms: Positive: Visual Changes, Headache, Dizziness TPA Considered: Yes - TPA was considered but rejected because of patient's rx and unknown onset Related Hx: Anticoagulants - ASA - Allergy/Home Medications Allergies/Adverse Reactions: Allergies Allergy/AdvReac Type Severity Reaction Status Date / Time No Known Allergies Allergy Verified 03/10/19 10:44 PMH/Surg Hx/FS Hx/Imm Hx Endocrine/Hematology History: Denies: Hx Anticoagulant Therapy, Hx Blood Disorders, Hx Diabetes Cardiovascular History: Reports: Hx Angina, Hx Atrial Fibrillation - per pt, takes norvasc for this, Hx Coronary Artery Disease, Hx Hypercholesterolemia, Hx Hypertension - ON MEDS PT. STATES CONTROLLED, Other Cardiovascular Problems/ Disorders - OCCASIONAL AFIB Denies: Hx Deep Vein Thrombosis, Hx Myocardial Infarction, Hx Pacemaker/ICD, Hx Valvular Heart Disease Respiratory History: Reports: Hx Sleep Apnea Denies: Hx Asthma, Hx Chronic Obstructive Pulmonary Disease (COPD) History: Reports: Hx Kidney Stones Denies: Hx Chronic Renal Failure Musculoskeletal History: Reports: Other Musculoskeletal History - BROKEN FINGER Denies: Hx Rheumatoid Arthritis, Hx Osteoporosis Sensory History: Reports: Hx Cataracts - BILAT Denies: Hx Contacts or Glasses, Hx Hearing Aid Opthamlomology History: Reports: Hx Cataracts - BILAT Denies: Hx Contacts or Glasses - Surgical History Surgical History: Yes Surgery Procedure, Year, and Place: FIXED LT CHEEK 2007;BI-LATERAL CATARACT 1989; TONSILLECTOMY A CHILD. cardiac catheterization 03/10/19. Hx Anesthesia Reactions: No Infectious Disease History: No Infectious Disease History: Denies: Hx Clostridium Difficile, Traveled Outside the [place] in Last 30 Days - Family History Known Family History: Positive: Renal Disease Family History: FHx of kidney stones -- Father - Social History Alcohol Use: Occasionally Alcohol Amount: 2/week Hx Substance Use: Yes Substance Use Type: Reports: Marijuana Substance Use Comment - Amount & Last Used: weekly Hx Tobacco Use: No Smoking Status (MU): Never Smoked Tobacco Review of Systems - ROS Summary Review of Systems Summary: Code iqbal called 1838 Negative: Fever Eyes: Other - flashy, shutter-like vision, resolved since onset Neurological: Other - dizziness Positive: Headache, Syncope - near-syncopal event All Other Systems Reviewed And Are Negative: Yes Physical Exam - Summary Physical Exam Summary: Appearance: The patient is well-nourished in no acute distress and in no acute pain. Skin: The skin is warm and dry, and skin color reflects adequate perfusion. HEENT: The head is normocephalic and atraumatic. The pupils are equal and reactive. The conjunctivae are clear and without drainage. Nares are patent and without drainage. Mouth reveals moist mucous membranes, and the throat is without erythema and exudate. The external ears are intact. The ear canals are patent and without drainage. The tympanic membranes are intact. Neck: The neck is supple with full range of motion and non-tender. There are no carotid bruits. There is no neck vein distension. Respiratory: Chest is non-tender. Lungs are clear to auscultation and breath sounds are symmetrical and equal. Cardiovascular: Heart is regular rate and rhythm. There is no murmur or rub auscultated. There is no peripheral edema and pulses are symmetrical and equal. Abdomen: The abdomen is soft and non-tender. There are normal bowel sounds heard in all four quadrants and there is no organomegaly palpated. Musculoskeletal: There is no back tenderness noted. Extremities are non-tender with full range of motion. There is good capillary refill. There is no peripheral edema or calf tenderness elicited. Neurological: Patient is alert and oriented to person, place and time. The patient has symmetrical motor strength in all four extremities. Cranial nerves are grossly intact. Deep tendon reflexes are symmetrical and equal in all four extremities. GCS 15. NIH scale 0. Psychiatric: The patient has an appropriate affect and does not exhibit any anxiety or depression. Triage Information Reviewed: Yes Vital Signs On Initial Exam: Initial Vitals Temp Pulse Resp BP Pulse Ox 98.4 F 68 18 153/76 97 03/10/19 18:35 03/10/19 18:35 03/10/19 18:35 03/10/19 18:35 03/10/19 18:35 Vital Signs Reviewed: Yes - Klever Coma Scale Best Eye Response: 4 - Spontaneous Best Motor Response: 6 - Obeys Commands Best Verbal Response: 5 - Oriented Coma Scale Total: 15 Diagnostics - Vital Signs Vital Signs Temp Pulse Resp BP Pulse Ox 03/10/19 18:35 98.4 F 68 18 153/76 97 - Laboratory Result Diagrams: 03/10/19 18:45 03/10/19 18:45 Lab Statement: Any lab studies that have been ordered have been reviewed, and results considered in the medical decision making process. - CT Brain CT CT Interpretation Completed By: Radiologist Summary of CT Findings: IMPRESSION: 1. No acute intracranial hemorrhage or acute territorial type infarct. 2. Mild atrophy. 3. If further evaluation is clinically indicated, an MRI of the brain is. recommended. The ED physician has reviewed this report. - EKG 1855 Cardiac Rate: NL EKG Rhythm: Sinus Rhythm ST Segment: Normal Ectopy: None Summary of EKG Findings: Normal sinus rhythm, normal ST, no ectopy, no STEMI NIH Scale - NIH Scale Level of Consciousness: Alert/Keenly Responsive Ask Patient the Month and His/Her Age: Both Correct Ask Pt to Open/Close Eyes and Configuration Engineer/Release Non-Paretic Hand: Both Correctly Best Gaze (Only Horizontal Eye Movement): Normal Visual Field Testing: No Visual Loss Facial Paresis-Pt to Smile & Close Eyes or Grimace Symmetry: Normal/Symmetrical Motor Function - Right Arm: No Drift-Holds 10 Seconds Motor Function - Left Arm: No Drift-Holds 10 Seconds Motor Function - Right Leg: No Drift-Holds 10 Seconds Motor Function - Left Leg: No Drift-Holds 10 Seconds Limb Ataxia-Must be out of Proportion to Weakness Present: Absent Sensory (Use Pinprick to Test Arms/Legs/Trunk/Face): Normal Best Language (Describe Picture, Name Items): No Aphasia Dysarthria (Read Several Words): Normal Extinction and Inattention: No Abnormality Total Score: 0 Re-Evaluation - Re-Evaluation First Eval Re-Evaluation Time: 22:00 Comment: We discussed likely admission. Course/Dx - Course Course Of Treatment: Mr. Rivera presented about 2 hours after about 10 or 15 minute episode of blurred vision and ataxia. He states that he is back to normal and his only symptomatology is a mild headache when I see him. His NIH stroke scale was 0. Labs and CT were obtained and I spoke with Dr. Conley of [place] [facility]. The patient had a cardiac catheterization earlier in the day and I was hesitant to get a CTA given the dye load. Dr. Conley recommended admission and MRI in the morning. I spoke with Dr. Ceron from the hospitalists. - Diagnoses Provider Diagnoses: TIA (transient ischemic attack) During the Visit The Following Alert/Code Occurred: Code Iqbal - code rasheed called 1838 - Physician Notifications Discussed Care Of Patient With: Pako Jorge Time Discussed With Above Provider: 19:56 Instructed by Provider To: Other - Provider discussed patient care with Dr. Jorge, Neurology, who agreed to set up a Telestroke appointment with the patient. He does not believe transfer is necessary at this time. Discharge ED - Sign-Out/Discharge Documenting (check all that apply): Patient Departure - Patient acecpted for admission by Dr. Ceron. Patient Received Moderate/Deep Sedation with Procedure: No - Discharge Plan Condition: Stable Disposition: ADMITTED TO [facility] Referrals: Lawrence Rodriguez MD [Primary Care Provider] - - Billing Disposition and Condition Condition: STABLE Disposition: Admitted to [facility] - Attestation Statements Document Initiated by Scribe: Yes Documenting Scribe: Juancho Rothman Provider For Whom Scribe is Documenting (Include Credential): Arnulfo Mendez MD Scribe Attestation: Juancho Blanco, scribed for Arnulfo Mendez MD on at 2148. Scribe Documentation Reviewed: Yes Provider Attestation: The documentation as recorded by the scribe, Juancho [place] and Jessika Rothman accurately reflects the service I personally performed and the decisions made by me, Arnulfo Mendez MD Status of Scribe Document: Viewed
[2019-03-10 18:56] LABS: ABS Eosinophils 0.2 10^3/ul (0-0.6); ABS Lymphocytes 1.8 10^3/ul (1.0-4.8); ABS Monocytes 0.7 10^3/ul (0-0.8); ABS Neutrophils 2.7 10^3/ul (1.5-7.7); Eosinophil % 3.9 %; Hematocrit 41 % (42-52); Hemoglobin 14.5 g/dL (14.0-18.0); Lymphocyte % 33.4 %; Mean Corpuscular HGB Conc 35 g/dL (31-36); Mean Corpuscular Hemoglobin 33 pg (27-31); Mean Corpuscular Volume 94 fL (80-94); Mean Platelet Volume 7.6 fL (7.4-10.4); Nucleated Red Blood Cells % 0.1; Platelet Count 292 10^3/uL (150-450); Red Blood Count 4.38 10^6 /uL (4.18-5.48); Red Cell Distribution Width 13 % (10-15); White Blood Count 5.5 10^3/uL (3.5-10.8)
[2019-03-10 19:07] LABS: INR 0.98 (0.82-1.09)
[2019-03-10 19:12] LABS: Albumin 4.4 g/dL (3.2-5.2); Albumin/Globulin Ratio 1.8 (1-3); Calcium 9.5 mg/dL (8.6-10.3); EGFR Non-African American 101.7 (>60); Globulin 2.5 g/dL (2-4); Potassium 4.5 mmol/L (3.5-5.0); Total Bilirubin 0.7 mg/dL (0.2-1.0); Total Protein 6.9 g/dL (6.4-8.9)
[2019-03-10] MEDS ORDERED: Aspirin TAB* 325 MG PO ONE (19:58)
--- OUTSIDE RECORDS SUMMARY | 2019-03-10 20:43 | XMS REPORT | Continuity of Care Document ---
:1950 External Reference #:[id number] Author Name Zana Dunn Care Team Providers Name Role Phone Lawrence Rodriguez MD - Family Medicine Care Team Information Lining Folder [phone] Problems Active Problems Provider Date Chest pain Vivek Ayala M.D., [facility], Onset: 05/01/2014 [facility] Palpitations Vivek Ayala M.D., [facility], Onset: 09/15/2014 FASNC Obstructive sleep apnea of adult Kaci Goodman DNP, RN, [facility] Onset: 10/2014 Note: suspect mild Angina pectoris Cheryl Hay MD, [facility], Onset: 07/09/2016 [facility] Paroxysmal atrial fibrillation Cheryl Hay MD, [facility], Onset: 04/09/2017 [facility] Pure hypercholesterolemia Krunal Lyons M.D. Onset: 04/30/2018 Late effect of fracture of upper Aung Alas MD Onset: 06/22/2018 extremities Closed fracture of distal end of radius Aung Alas MD Onset: 02/01/2019 Contracture of palmar fascia Aung Alas MD Onset: 12/21/2018 Contracture of joint of hand Aung Alas MD Onset: 12/09/2018 Social History Type Date Description Comments Sex Unknown Tobacco Use Start: Unknown Never Smoked Cigarettes Smoking Status Reviewed: 02/08/19 Never Smoked Cigarettes ETOH Use Occasionally consumes multiple times per alcohol week, not daily Tobacco Use Start: Unknown Patient has never smoked Recreational Drug Use Regularly uses once per week Marijuana Exercise Type/Frequency Exercises regularly gym 3x times a week Allergies, Adverse Reactions, Alerts Description No Known Drug Allergies Medications Active Medications SIG Qnty Indications Ordering Date Provider Cyclobenzaprine HCL 1 tab by mouth 30tabs Aung Alas, 02/02/2019 5mg three times a MD Tablets day as needed for spasm Norvasc 1/2 tab by mouth 30tabs Christine Tan, 09/24/2018 5mg Tablets every day N.P. Magnesium Oxide 1 by mouth every 90tabs I48.0 Christine Tan, 06/21/2018 400mg day N.P. Tablets Metoprolol Succinate ER 1/2 tab by mouth 90tabs I48.0 Krunal Bailon 2017 every day Luis Lyons 25mg Tablets ER 24HR Nitrostat one sl q5min up 25tabs I20.9 Cheryl Fong 03/02/2017 0.4mg Tablets Sub to 3 doses as MD Satnam, needed FACAntionette, FSCAI Lipitor 1 by mouth every 90tabs I20.9 Krunal Bailon 01/22/2015 20mg Tablets day Luis Lyons Aspirin Low Dose 1 orally daily 30tabs I20.9 Cheryl Fong 01/03/2015 81mg MD Satnam, Tablets FACAntionette, JULIETH Centrum Silver 1 by mouth every Unknown Tablets day Calcium 500+D3 1 tab by mouth Unknown daily [id number] Tablets Cpap Mask And Supplies cpap supplies - Unknown headgear, Device cushion, tubing, filters, for sleep apnea dx 780.57 History Medications Tramadol HCL 1-2 tablets by 30tabs Aung Alas, 12/09/2018 - 50mg mouth every 6 01/17/2019 Tablets hours as needed pain Cephalexin 1 tab by mouth 12tabs Aung Alas 12/09/2018 - 500mg four times a day 01/17/2019 Tablets for 3 days Medications Administered in Office Medication SIG Qnty Indications Ordering Provider Date Technetium TC 99M TetrofDeandre herbert M.D. 08/05/2018 Per Unit Dose Up To 40 Millicuries Injection Immunizations Description No Information Available Vital Signs Date Vital Result Comment 02/08/2019 3:51pm Height 72 inches 6'0" Heart Rate 78 /min BP Systolic 120 mmHg BP Diastolic 88 mmHg Respiratory Rate 18 /min Body Temperature 98.6 F Pain Level 7 02/01/2019 11:08am Height 72 inches 6'0" Weight 160.00 lb Heart Rate 72 /min BP Systolic 126 mmHg BP Diastolic 76 mmHg Respiratory Rate 14 /min Pain Level 2 BMI (Body Mass Index) 21.7 kg/m2 Results Description No Information Available Procedures Date Code Description Status 02/08/2019 82105 Short Arm Splint Application Completed 12/09/2018 64015 Capsulectomy/Capsulotomy Interphalangeal Joint Completed 12/09/2018 76546 Capsulectomy/Capsulotomy Interphalangeal Joint Completed 12/09/2018 25532 Tenolysis Extensor Tendon Hand Or Finger Completed 12/09/2018 12854 Tenolysis Extensor Tendon Hand Or Finger Completed 09/24/2018 02574 EKG Tracing & Interpretation Completed 11/11/2017 [id number] Bone Mineral Density Test Completed Medical Devices Description No Information Available Encounters Type Date Location Provider Dx Diagnosis Office Visit 10/12/2018 [facility] Aung Alas, S62.664D Nondisp fx of 9:45a [facility] [place] dist phalanx of r rng fngr, 7thD Office Visit 09/24/2018 [facility] Christine Tan, I25.10 Athscl heart 2:00p Of Vat Operator N.P. disease of [place] coronary artery w/o ang pctrs R07.9 Chest pain, unspecified I48.0 Paroxysmal atrial fibrillation I47.1 Supraventricular tachycardia I10 Essential (primary) hypertension Office Visit 08/18/2018 11:00a Orthopedic Aung S62.625D Disp fx of Services Of MD Ev[place] middle phalanx C.M.AMark of left ring finger, 7thD Assessments Date Code Description Provider 02/08/2019 S52.592A Other fractures of lower end of left Aung Alas MD radius, initial encounter for closed fracture 02/01/2019 S52.592A Other fractures of lower end of left Aung Alas MD radius, initial encounter for closed fracture 01/18/2019 M24.542 Contracture, left hand Aung Alas MD 01/18/2019 M72.0 Palmar fascial fibromatosis [Dupuytren] Aung Alas MD 01/18/2019 Z47.89 Encounter for other orthopedic aftercare Aung Alas MD 12/21/2018 M24.542 Contracture, left hand Aung Alas MD 12/21/2018 M72.0 Palmar fascial fibromatosis [Dupuytren] Aung Alas MD 12/21/2018 Z47.89 Encounter for other orthopedic aftercare Aung Alas MD 12/09/2018 S62.625S Disp fx of middle phalanx of left ring TABITHA Catalan finger, sequela 12/09/2018 S62.625S Disp fx of middle phalanx of left ring Aung Alas MD finger, sequela 12/09/2018 M24.542 Contracture, left hand TABITHA Catalan 12/09/2018 M24.542 Contracture, left hand Aung Alas MD 11/23/2018 S62.664D Nondisplaced fracture of distal phalanx Aung Alas MD of right ring finger 10/29/2018 S62.664D Nondisplaced fracture of distal phalanx Aung Alas MD of right ring finger 10/12/2018 S62.664D Nondisplaced fracture of distal phalanx Aung Alas MD of right ring finger 09/24/2018 R07.9 Chest pain, unspecified Krunal Lyons M.D. 09/24/2018 I25.10 Atherosclerotic heart disease of [place] Christine Tan, N.P. coronary artery with 09/24/2018 R07.9 Chest pain, unspecified Christine Tan, N.P. 09/24/2018 I48.0 Paroxysmal atrial fibrillation Christine Tan N.P. 09/24/2018 I47.1 Supraventricular tachycardia Christine Tan, N.P. 09/24/2018 I10 Essential (primary) hypertension Christine Tan, N.P. 08/18/2018 S62.625D Displaced fracture of middle phalanx of Aung Alas MD left ring finger, arias Plan of Treatment Future Appointment(s):02/24/2019 3:00 pm - TABITHA [facility]hn at [facility]04/20/2019 9:45 am - Aung Alas MD at [facility]05/13/2019 10:00 am - Kaci Goodman DNP, RN, BILLBOARD MECHANIC-BC at [facility]02/08/2019 - BRENNA Treviño52.592A Other fractures of lower end of left radius, initial encounter for closed fractureFollow up:Follow up: 2 weeks Functional Status Description No Information Available Mental Status Description No Information Available Referrals Description No Information Available
--- OUTSIDE RECORDS SUMMARY | 2019-03-10 20:43 | XMS REPORT | Continuity of Care Document ---
:1950 External Reference #:[id number] Author Name Krunal Lyons M.D. (transmitted by agent of provider Nydia Andrews) Address [address] [place] [address] Care Team Providers Name Role Phone Lawrence Rodriguez MD - Family Medicine Care Team Information Associate School Psychologist [phone] Problems Active Problems Provider Date Chest pain Vivek Ayala M.D., [facility], Onset: 05/01/2014 [facility]ASNC Palpitations Vivek Ayala M.D., [facility], Onset: 09/15/2014 FASNC Obstructive sleep apnea of adult Kaci Goodman DNP, RN, [facility] Onset: 10/2014 Note: suspect mild Angina pectoris Cheryl Hay MD, [facility], Onset: [facility] Paroxysmal atrial fibrillation Cheryl Hay MD, [facility], Onset: 04/09/2017 FSCAI Pure hypercholesterolemia Krunal [...] Unknown Never Smoked Cigarettes Smoking Status Reviewed: 02/15/19 Never Smoked Cigarettes ETOH Use Occasionally consumes beer 1-2 twice alcohol weekly Tobacco Use Start: Unknown Patient has never smoked Recreational Drug Use Regularly uses once per week Marijuana Exercise Type/Frequency Does not exercise Allergies, Adverse Reactions, Alerts Description No Known Drug Allergies Medications Active Medications SIG Qnty Indications Ordering Date Provider Cyclobenzaprine HCL 1 tab by mouth 30tabs Aung Alas, 02/02/2019 5mg three times a MD Tablets day as needed for spasm Norvasc 1 tablet tab by 30tabs Christine Tan, 09/24/2018 5mg Tablets mouth every day N.P. Magnesium Oxide 1 by mouth every 90tabs I48.0 Christine Tan, 06/21/2018 400mg day N.P. Tablets Metoprolol Succinate ER 1 tablet by 90tabs I48.0 Krunal Bailon 04/30/2018 mouth every day Luis Lyons 25mg Tablets ER 24HR Nitrostat one sl q5min up 25tabs I20.9 Cheryl Fong 03/02/2017 0.4mg Tablets Sub to 3 doses as MD Satnam, needed JULIETH WILLIAM Lipitor 1 by mouth every 90tabs I20.9 Krunal Bailon 01/22/2015 20mg Tablets day Luis Lyons Aspirin Low Dose 1 orally daily 30tabs I20.9 Cheryl Fong 01/03/2015 81mg MD Satnam, Tablets JULIETH WILLIAM Centrum Silver 1 by mouth every Unknown Tablets day Calcium 500+D3 1 tab by mouth Unknown daily [id number] Tablets Cpap Mask And Supplies cpap supplies - Unknown headgear, Device cushion, tubing, filters, for sleep apnea dx 780.57 Ibuprofen 2 tabs by mouth Unknown 200mg Capsules every 6 hours as needed History Medications Tramadol HCL 1-2 tablets by 30tabs Aung Alas, 12/09/2018 - 50mg mouth every 6 01/17/2019 Tablets hours as needed pain Cephalexin 1 tab by mouth 12tabs Aung Alas, 12/09/2018 - 500mg four times a day 01/17/2019 Tablets for 3 days Medications Administered in Office Medication SIG Qnty Indications Ordering Provider Date Technetium TC 99M NikiaofDeandre herbert M.D. 08/05/2018 Per Unit Dose Up To 40 Millicuries Injection Immunizations Description No Information Available Vital Signs Date Vital Result Comment 02/15/2019 10:53am Height 72 inches 6'0" Weight 161.00 lb with shoes Heart Rate 76 /min right radial BP Systolic Sitting 130 mmHg ure, reg cuff BP Diastolic Sitting 84 mmHg ure, reg cuff BP Systolic Standing 132 mmHg ure, reg cuff BP Diastolic Standing 86 mmHg ure, reg cuff BP Systolic Lying Down 118 mmHg ra repeat sitting BP Diastolic Lying Down 70 mmHg ra repeat sitting BMI (Body Mass Index) 21.8 kg/m2 Ejection Fraction 55-60% echo 05/05/14 02/08/2019 3:51pm Height 72 inches 6'0" Heart Rate 78 /min BP Systolic 120 mmHg BP Diastolic 88 mmHg Respiratory Rate 18 /min Body Temperature 98.6 F Pain Level 7 Results Description No Information Available Procedures Date Code Description Status 02/15/2019 10924 EKG Tracing & Interpretation Completed 02/08/2019 35250 Short Arm Splint Application Completed 12/09/2018 78349 Capsulectomy/Capsulotomy Interphalangeal Joint Completed 12/09/2018 39201 Capsulectomy/Capsulotomy Interphalangeal Joint Completed 12/09/2018 36332 Tenolysis Extensor Tendon Hand Or Finger Completed 12/09/2018 82357 Tenolysis Extensor Tendon Hand Or Finger Completed 09/24/2018 60010 EKG Tracing & Interpretation Completed 11/11/2017 [id number] Bone Mineral Density Test Completed Medical Devices Description No Information Available Encounters Type Date Location Provider Dx Diagnosis Office Visit 02/15/2019 [facility] Krunal Bailon R07.9 Chest pain, 11:00a Luis Lyons unspecified I25.10 Athscl heart disease of [place] coronary artery w/o allegra pctrs I48.0 Paroxysmal atrial fibrillation Office Visit 10/12/2018 9:45a Orthopedic Aung S62.664D Nondisp fx of Services [facility] MD Evette dist phalanx of [place] coll[place] rng fngr, 7thD Office Visit 09/24/2018 2:00p [facility] Christine Lundberg I25.10 Athscl heart Of Trung Tan N.P. disease of [place] coronary artery w/o ang pctrs R07.9 Chest pain, unspecified I48.0 Paroxysmal atrial fibrillation I47.1 Supraventricular tachycardia I10 Essential (primary) hypertension Assessments Date Code Description Provider 02/15/2019 R07.9 Chest pain, unspecified Krunal Lyons M.D. 02/15/2019 I25.10 Atherosclerotic heart disease of [place] Krunal Lyons M.D. coronary artery with 02/15/2019 I48.0 Paroxysmal atrial fibrillation Krunal Lyons M.D. 02/08/2019 S52.592A Other fractures of lower end [...] M.D. 09/24/2018 I25.10 Atherosclerotic heart disease of [place] Christine Tan N.PMark coronary artery with 09/24/2018 R07.9 Chest pain, unspecified Christine Tan, N.P. 09/24/2018 I48.0 Paroxysmal atrial fibrillation Christine Tan N.P. 09/24/2018 I47.1 Supraventricular tachycardia Erica Nichole.P. 09/24/2018 I10 Essential (primary) hypertension Christine Tan N.P. Plan of Treatment Future Appointment(s):04/18/2019 10:00 am - Christine Tan N.P. at [facility]02/24/2019 3:00 pm - TABITHA Ahn at [facility].04/20/2019 9:45 am - Aung Alas MD at [facility].05/13/2019 10:00 am - Kaci Goodman DNP, RN, BOOK AUTHOR-BC at [facility]02/15/2019 - Krunal Lyons M.D.R07.9 Chest pain, unspecifiedNew Xrays:CT Angio Of The Coronaries, Ordered: 02/15/19Follow up:ov Christine 2 m ov JFM 6 mI25.10 Atherosclerotic heart disease of [place] coronary artery withI48.0 Paroxysmal atrial fibrillation Functional Status Description No Information Available Mental Status Description No Information Available Referrals Description No Information Available
[2019-03-11] MEDS ORDERED: Albuterol HFA INHALER* 8 gm MDI INH PRN (01:54)
[2019-03-11] MEDS ORDERED: Nitroglycerin TAB 0.4 MG* 0.4 MG TAB SL PRN (01:54)
[2019-03-11] MEDS ORDERED: NS 0.9% 1000 ML** 1,000 ML IV SCH (02:00)
--- NOTE | 2019-03-11 05:35 | HP ---
CC: Dr. Lawrence Rodriguez* ADMISSION HISTORY AND PHYSICAL: DATE OF ADMISSION: 03/11/19 PRIMARY CARE PHYSICIAN: Dr. Lawrence Rodriguez. CHIEF COMPLAINT: Blurry vision, lightheadedness and ataxia. HISTORY OF PRESENT ILLNESS: This is a 68-year-old male with past medical history of paroxysmal AFib, high blood pressure. He was having on and off chest pain for the last few months and underwent cardiac cath yesterday morning without any stenting. After the procedure, the patient went home, was doing fine, but around 5 p.m. started noticing that he was having blurry vision. He described the vision as if the shutter is comparable to old movies and some flashing and he was unable to read and was feeling lightheaded having almost fainted and almost a near syncopal episode. He also stated that he was having some unsteady gait and was also having some mild headache. This entire episode lasted about 10 to 20 minutes though he was brought into the EMS for further evaluation. The patient otherwise offers no palpitations or any other symptoms of chest pain or any nausea or vomiting. No other weakness, numbness or tingling anywhere on the body. No previous such episodes ever happened to the patient and denies any fever or chills. PAST MEDICAL HISTORY: As mentioned, high blood pressure and paroxysmal AFib. The patient was started on some cholesterol medication due to his CAT scans showing high coronary score and the patient was also started on albuterol only for chronic cough, but does not use it much. PAST SURGICAL HISTORY: He has had left ring finger ORIF in November 2017. He has had a left cheek bone fracture, bilateral cataract surgeries, tonsillectomy, and the more recent cardiac cath via radial approach on the right radius. He still has an immobilizer in place. HOME MEDICATIONS: The patient is currently on: 1. Amlodipine 5 mg every morning. 2. Nitroglycerin 0.4 mg sublingual as needed for pain. 3. Multivitamins 1 tablet oral daily every morning. 4. Metoprolol 25 mg daily every morning. 5. Magnesium oxide 400 mg oral daily. 6. Ibuprofen 2 tablets every 6 hours p.r.n. for pain. 7. Calcium with vitamin D3 one tablet oral daily. 8. Atorvastatin 20 mg oral daily. 9. Aspirin 81 mg oral daily. 10. Albuterol 2 puffs by inhalation q.4 hours, which she has not used in many days. ALLERGIES: No known drug allergies. FAMILY HISTORY: There is history of heart disease and high blood pressure and stroke in the family. SOCIAL HISTORY: Lives with his spouse. Works as property management. Denies any smoking or drugs, but does state that he drinks 2 beers at least a few times a week, but not on a daily basis. He is full code and states that his is the healthcare proxy. REVIEW OF SYSTEMS: A 14-point review of systems did not reveal any new information other than what is mentioned in the HPI. PHYSICAL EXAMINATION GENERAL: The patient is awake, alert, oriented x3, did not appear to be in any acute distress. VITAL SIGNS: BP was noted to be 99/72, heart rate 71, respiration rate 17, saturating 96% on room air, temperature was 98.1. HEAD AND NECK: Atraumatic, normocephalic. Bilateral pupils are reactive. Oral mucosa was moist. Neck is supple. No jugular venous distention. LUNGS: Clear to auscultation bilaterally. No wheezing, rhonchi, or rales. HEART: S1, S2. Regular rate and rhythm. ABDOMEN: Soft, nontender, nondistended. EXTREMITIES: No cyanosis, clubbing, or edema. NIH Stroke Scale was noted to be 0. DIAGNOSTIC STUDIES/LAB DATA: CBC was unremarkable. Coagulation profile unremarkable. Comprehensive metabolic panel was unremarkable. EKG showed sinus rhythm with LVH based on voltage criteria. However, this could be possibly elevated due to the patient's skinny body habitus, the voltage might be elevated due to lack of resistance from decreased adipose tissue. CT brain shows no acute intracranial hemorrhage or acute territorial type infarct, mild atrophy. Further imaging with MRI of the brain is recommended. IMPRESSION: This is a 68-year-old gentleman with hypertension, paroxysmal atrial fibrillation, came in with temporary vision disturbances and ataxia and dizziness all of which were resolved. Cardiology recommended the patient to undergo MRI for further evaluation to rule out any stroke. ASSESSMENT AND PLAN: 1. Vision disturbances, possible transient ischemic attack. We will follow up with MRI of the brain. We will risk stratify the patient with A1c and lipid panel in the morning. We will also check on TSH. We will consider consultation with Neurology based on the MRI results. We will get echocardiogram and carotid Duplex as well. 2. History of hypertension. We will restart home medications with holding parameters. 3. History of paroxysmal atrial fibrillation. Currently not on any anticoagulation with Eliquis, only he takes aspirin. We will consider discussing with neurologist and personal investment adviser regarding if the patient would benefit from any anticoagulation with Eliquis or Xarelto given his transient ischemic attack incident. In the mean time, we will continue with the metoprolol the patient is already on and monitor him on telemetry. 4. DVT prophylaxis with sequential compression device. 5. Code status: The patient is full code and is the healthcare proxy. [id number]/[facility] #: [id number] KINZA
[2019-03-11 05:41] LABS: ABS Eosinophils 0.2 10^3/ul (0-0.6); ABS Lymphocytes 1.5 10^3/ul (1.0-4.8); ABS Monocytes 0.5 10^3/ul (0-0.8); ABS Neutrophils 3.6 10^3/ul (1.5-7.7); Eosinophil % 3.9 %; Hematocrit 37 % (42-52); Hemoglobin 12.9 g/dL (14.0-18.0); Lymphocyte % 25.8 %; Mean Corpuscular HGB Conc 34 g/dL (31-36); Mean Corpuscular Hemoglobin 32 pg (27-31); Mean Corpuscular Volume 94 fL (80-94); Mean Platelet Volume 7.7 fL (7.4-10.4); Platelet Count 252 10^3/uL (150-450); Red Blood Count 3.97 10^6 /uL (4.18-5.48); Red Cell Distribution Width 14 % (10-15); White Blood Count 5.9 10^3/uL (3.5-10.8)
[2019-03-11 05:54] LABS: BUN/Creatinine Ratio 23.1 (8-20); Calcium 8.6 mg/dL (8.6-10.3); EGFR African American 119.4 (>60); EGFR Non-African American 98.7 (>60); HDL Cholesterol 44.7 mg/dL; Potassium 4.1 mmol/L (3.5-5.0)
[2019-03-11 06:37] LABS: TSH (Thyroid Stimulating Horm) 5.75 mcIU/mL (0.34-5.60)
[2019-03-11 08:31] LABS: Troponin I 0.03 ng/mL (<0.04)
[2019-03-11 08:45] LABS: Free T3 3.3 pg/mL (2.5-3.9)
[2019-03-11 08:47] LABS: Free T4 0.83 ng/dL (0.61-1.12)
[2019-03-11] MEDS ORDERED: Magnesium Oxide TAB* 400 MG PO SCH (09:00)
[2019-03-11] MEDS ORDERED: Multivitamins/Minerals TAB PO SCH (09:00)
[2019-03-11] MEDS ORDERED: amLODIPine TAB* 5 MG PO SCH (09:00)
[2019-03-11] MEDS ORDERED: Metoprolol Succinate XL TAB* 25 MG PO SCH (09:00)
[2019-03-11] MEDS ORDERED: Calcium/Vitamin D TAB 250/125* TAB PO SCH (09:00)
[2019-03-11] MEDS ORDERED: Atorvastatin* 20 MG TAB PO SCH (09:00)
[2019-03-11] MEDS ORDERED: Aspirin EC TAB* 81 MG TAB.EC PO SCH (09:00)
[2019-03-11] MEDS ORDERED: Gadoteridol* (CONTRAST) 279.3 MG/ML 10 ML IV ONE (11:24)
--- NOTE | 2019-03-11 11:49 | ECHO ---
*[facility]* [place] [address] Fax #: [phone] Transthoracic Echocardiogram Patient: Cornel Rivera : 1950 Study Date: 03/11/2019 Age: 68 Gender: M HR: 68 bpm Height: 72 in /183 cm BSA: 1.92 m^2 Weight: 160.6 lb /73 kg BMI: 21.8 kg/m^2 *Wafer Abrading Machine Tender: * Nora Tipton [facility] *Referring Physician: * Fredy Ceron *Reading Physician: * Vivek Ayala MD Indications: TIA. History: Atrial fibrillation. Risk factors: Hypertension. Labs, prior tests, procedures, and surgery: Catheterization. Conclusions Summary: - Left ventricle: The cavity size is normal. Wall thickness is mildly to moderately increased. Systolic function is normal. The estimated ejection fraction is 55-60%. Wall motion is normal; there are no regional wall motion abnormalities. - Normal cardiac chamber sizes. - Functionally benign heart valves. - Atrial septum: A PFO is not demonstrated by color Doppler or agitated saline contrast. Negative bubble study. - Since the prior echocardiogram completed 05/05/14, there is no significant change. Study data: Transthoracic echocardiogram. Procedure: Transthoracic echocardiography was performed. Image quality was good. A bubble study was performed. Complete 2D, spectral Doppler, and color flow Doppler. Location: Bedside. Patient status: Inpatient. Patient room number: 442 02. Rhythm: Normal sinus rhythm. Findings Left ventricle: The cavity size is normal. Wall thickness is mildly to moderately increased. Systolic function is normal. The estimated ejection fraction is 55-60%. Wall motion is normal; there are no regional wall motion abnormalities. There is no consistent Doppler evidence of clinically significant diastolic dysfunction. Right ventricle: The cavity size is normal. Systolic function is normal. Left atrium: The atrium is normal in size. Right atrium: The atrium is normal in size. There is the appearance of a Chiari network. Atrial septum: A PFO is not demonstrated by color Doppler or agitated saline contrast. Negative bubble study. Mitral valve: The leaflets are normal thickness. There is trace to mild regurgitation. Aortic valve: The valve is trileaflet. The leaflets are mildly thickened. There is no evidence of stenosis. There is trace regurgitation. Tricuspid valve: The leaflets are normal thickness. There is trace to mild regurgitation. Pulmonic valve: The leaflets are normal thickness. There is no evidence of stenosis. There is no regurgitation. Aorta: The aortic root appears normal. The aortic arch appears normal. Pericardium: There is no significant pericardial effusion. Pulmonary arteries: Not well visualized. Systolic pressure is within the normal range. Systemic veins: Inferior vena cava: The vessel is normal in size. There is (>= 50%) respiratory change in the IVC dimension. Measurements Left ventricle Value Ref Aortic valve continued Value Ref CESAR, LAX (L) 3.5 cm 4.2 - 5.8 AR peak v 3.13 m/sec ----- ESD, LAX (L) 2.4 cm 2.5 - 4.0 AR decel time 1682 ms ----- FS, LAX 32 % 25 - 43 AR PHT 488 ms ----- PW, ED, LAX (H) 1.1 cm 0.6 - 1.0 AR peak grad 39 mm Hg ----- EF 60 % 52 - 72 E', lat roxane, TDI (L) 6.0 cm/sec >=10.0 Mitral valve Value R ef E/e', lat roxane, TDI 13 --------- Peak E 0.81 m/sec ---- - E', med roxane, TDI (L) 6.0 cm/sec >=7.0 Peak A 0.66 m/sec - ---- E/e', med roxane, TDI 13 --------- Decel time 208 ms ---- - E', avg, TDI 6.0 cm/sec --------- Peak grad, D 2.6 mm Hg ---- - E/e', avg, TDI 13 <=14 Peak E/A ratio 1.23 - ---- LVOT Value Ref Pulmonic valve Value Ref Peak arianna, S 1.2 m/sec --------- Peak v, S 0.59 m/sec ----- VTI, S 26.8 cm --------- Peak grad, S 1.4 mm Hg ----- Peak grad, S 6 mm Hg --------- Mean grad, S 3 mm Hg --------- Tricuspid valve Value Ref TR peak v 2.7 m/sec <=2.8 Ventricular septum Value Ref Peak RV-RA grad, S 29 mm Hg ----- IVS, ED (H) 1.6 cm 0.6 - 1.0 Aortic root Value Ref Right ventricle Value Ref Root diam 3.0 cm <4.1 CESAR, LAX 2.9 cm --------- CESAR major ax, A4C (L) 3.4 cm 5.9 - 8.3 Ascending aorta Value Ref Pressure, S 32 mm Hg --------- AAo AP diam, S 3.0 cm ----- Left atrium Value Ref Aortic arch Value Ref LA ID 3.0 cm --------- Arch diam 2.9 cm ----- ML dim, A4C 3.2 cm --------- SI dim, A4C 4.7 cm --------- Decending aorta Value Ref Vol/bsa, ES, A/L 24 ml/m^2 16 - 34 Danica peak arianna 0.6 m/sec ----- Right atrium Value Ref Pulmonary artery Value Ref SI dim, ES 4.3 cm 3.4 - 5.3 Pressure, S 30.6 mm Hg ----- ML dim, ES, A4C 3.9 cm 2.6 - 4.4 Estimated RAP 3 mm Hg --------- Inferior vena cava Value Ref Diam 1.5 cm ----- Aortic valve Value Ref Roxane diam, ED 1.8 cm --------- Pulmonary veins Value Ref Peak v, S 1.6 m/sec --------- Peak v, S 0.53 m/sec ----- VTI, S 36.6 cm --------- Peak v, D 0.56 m/sec ----- Mean grad, S 5.4 mm Hg --------- Peak S/D ratio 0.94 ----- Peak grad, S 10.2 mm Hg --------- A rev duration 80 ms ----- LVOT/AV, VTI ratio 0.73 --------- Legend: (L) and (H) nba values outside specified reference range. Prepared and electronically signed by Vivek Ayala MD 03/11/2019 11:48
[2019-03-11 16:41] VITALS: BP 112/59
--- NOTE | 2019-03-11 22:02 | DS ---
CC: Dr. Rodriguez; Dr. Kunal Hay.* DISCHARGE SUMMARY: DATE OF ADMISSION: 03/11/19 DATE OF DISCHARGE: 03/11/19 PRIMARY CARE PHYSICIAN: Dr. Lawrence Rodriguez. PRIMARY DIAGNOSIS: Neurological phenomenon, may be transient ischemic attack. SECONDARY DIAGNOSES: Include: 1. Recent left heart catheterization without intervention the day prior to presentation. 2. Hypertension. 3. Paroxysmal atrial fibrillation, not on anticoagulation. MEDICATIONS AT DISCHARGE: Include: 1. Plavix 75 mg for 21 days and then stop. 2. Aspirin 81 mg daily. 3. Amlodipine 5 mg daily. 4. Nitroglycerin sublingual 0.4 mg as needed. 5. Multivitamin 1 tab daily. 6. Metoprolol succinate 25 mg daily. 7. Magnesium oxide 400 mg daily. 8. Ibuprofen 2 tabs every 6 hours as needed for pain. 9. Calcium/vitamin D 1 tab daily. 10. Atorvastatin 20 mg in the morning. 11. Albuterol HFA 2 puffs every 4 hours as needed. PERTINENT LABS FROM HOSPITAL STAY: LDL is 55, HDL is 44, total cholesterol is 115. Hemoglobin A1c is 5.2. PERTINENT IMAGING: Transthoracic echocardiogram: Impression: Estimated LVEF is 55% to 60%. Wall motion is normal. No regional wall motion abnormality. Normal cardiac chamber sizes, functionally benign heart valves. No PFO. Brain MRI: No acute intracranial abnormality. Mild chronic small vessel ischemic disease is likely. Carotid Dopplers had no hemodynamically significantly stenosis of either internal carotid arteries. HISTORY OF PRESENT ILLNESS AND HOSPITAL COURSE: This is a 68-year-old man with a past medical history of paroxysmal atrial fibrillation, not on anticoagulation secondary to his aversion to taking the medication as well as hypertension who received a left heart cath a day prior to presentation for suspicion of unstable angina without intervention who developed approximately 30 -minutes episode of blurry vision and flashing triangles 2 hours after the procedure, resolved spontaneously. There was obviously concern for atheroembolic shower and/or TIA and/or embolic phenomenon from atrial fibrillation. MRI did not confirm any CVA. Cannot rule out TIA in the setting of above, although symptomatology is a little curious, much more consistent with migrainous phenomenon, although no history of migraines. We will place the patient on Plavix for 21 days in addition to his aspirin. At the completion of 21 days, the patient may be maintained on Plavix alone and/or aspirin alone, to be discussed further with primary care provider. We did undertake a prolonged discussion about risks and benefits for full anticoagulation for his paroxysmal atrial fibrillation. 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 We did discuss his risk for future embolic phenomenon that could result in disabling CVA or . He is currently precontemplative on the decision to assume full anticoagulation, which we discussed several options including Xarelto, Pradaxa and apixaban. He is engaged and interested in discussing further with Dr. Rodriguez in followup. He had no residual symptomatology at the time of discharge, in fact all have resolved in 20 or 30 minutes prior to presentation. On followup, please; 1. Continue discussion regarding full anticoagulation as indicated above. 2. Ensure patient discontinues Plavix and/or only continues Plavix and discontinue his aspirin after 21 days. 3. The patient was placed on atorvastatin. I do note his LDL and total cholesterol are exceedingly low, unclear benefit at this time from this medication. Can consider discontinuing and followup. 4. No other specific labs or vitals that need followup. Reasons to return to the hospital including, but not limited to, recurrent or worsening symptoms, any presence of unilateral symptoms that include paresthesias or decreased strength, aphasia, confusion, loss of consciousness, near loss of consciousness, bleeding from any source, chest pain and shortness of breath, any nausea, vomiting discussed with the patient at length. He acknowledged understanding. TIME SPENT: Greater than 60 minutes was spent on the discharge of this patient , greater than half was spent [id number] with the patient. [id number]/[facility] #: [id number] [facility]
--- NOTE | 2019-04-19 13:26 | PN ---
Progress Note - Progress Note Date of Service: 03/11/19 Note: Addendum to discharge summary completed on 03/11/2019 Disposition on discharge: Home Condition on Discharge: Improved
== END 2019-03-11 17:00 | disposition home or self-care (01) ==
LOC: ED 18:26 → MEDTELE 03-11 01:53
PROVIDERS: ADMIT Internal Medicine; ATTEND Internal Medicine
DX: R29.818 Other symptoms and signs involving the nervous system (principal); Z95.9 Presence of cardiac and vascular implant and graft, unspecified; I10 Essential (primary) hypertension; I48.0 Paroxysmal atrial fibrillation; Z79.82 Long term (current) use of aspirin; Z79.899 Other long term (current) drug therapy; H53.9 Unspecified visual disturbance; Z79.01 Long term (current) use of anticoagulants
CPT/HCPCS: 36415; 70450; 70553; 80048; 80053; 80061; 83036; 84439; 84443; 84481; 84484; 85025; 85610; 93005; 93306; 93880; 99285; A9270-GY; A9579; G0378

== ENCOUNTER → 2019-03-10 | Day surgery (SDC) | payer MEDICARE ==
[~2019-03-10] MED LIST changes: -Buffered Lidocaine 0.9% SYRIN* 5 ML/SYR SYRINGE INTRADERM ONE; +Heparin 2 UNITS/ML IVPREMIX* 2,000 ML IV ONE; +Heparin(*) 1000 UNIT/ML 10 ML VIAL CATH LAB IV ONE; +Iohexol 350 (CONTRAST) 200 ML MDV IV ONE; +Lidocaine 1% INJ* 10 MG/ML 30 ML SDV ONE; +Midazolam* 1 MG/ML 5 ML VIAL (5 MG) ONE; +NS 0.9% 1000 ML** 1,000 ML IV SCH; +VERAPAMIL 2.5 MG/ML 2 ML VIAL ** 5 mg/2 ml ONE; +fentaNYL* 50 MCG/ML 2 ML VIAL (100 MCG VIAL) ONE; +nitroGLYCERIN DRIP* 25,000 MCG/250 ML BTL ONE
[2019-03-10 15:05] VITALS: BP 119/72
--- NOTE | 2019-03-15 16:46 | CATH ---
CC: Dr. Lyons; Dr. Rodriguez CATH REPORT: DATE OF PROCEDURE: 03/10/19. CONTRACTS SPECIALIST: Dr. Lyons. PRIMARY CARE PHYSICIAN: Dr. Rodriguez. PROCEDURES: Right radial artery access, bilateral selective coronary cineangiography, left heart cat heterization, left ventriculography. HISTORY: A 68-year-old male with longstanding history of fairly typical class I exertional angina wi th multiple previous negative stress imaging evaluations. He has continued to have episodes of chest pain, recently had a CTA which reported a 70% LAD stenosis. He was referred for coronary angiograph y as he is persisting with symptoms on medical management. PROCEDURE ACCESS: Right radial artery sheath 6F slender. MEDICATIONS: 1. Subcu lidocaine. 2. IV Versed. 3. IV fentanyl. 4. Heparin 3000 units. 5. Verapamil 3 mg. 6. Nitroglycerin 300 mcg IA. DIAGNOSTIC CATHETERS: 5F TIG4, 5F pigtail. HEMODYNAMICS: Initial AO 89/58. LV 98/13, no aortic valve gradient on pullback. ANGIOGRAPHY: Left main: The left main is normal in size and length, smooth, has no stenosis. LAD: The LAD is moderate, supplies a number of small proximal diagonal branches, moderate mid diagon al after which the LAD has a 30% very focal stenosis, distally the LAD extends past the apex. Circumflex: The circumflex is not dominant, with a large marginal branch which bifurcates, the lower side branch has an ostial very discrete 30% to 40% stenosis, the more superior branch has a 20% to 3 0% stenosis. RCA: The RCA is moderate, dominant with a moderate PDA, followed by several small posterolaterals. The RCA has no stenosis. LV gram: There is ectopy, post PVC wall motion is normal, estimated LVEF 60% to 65%, there is no good ral regurgitation. CONCLUSION: 1. No significant obstructive coronary artery disease. His history is consistent with exertional an harini, he has negative prior perfusion imaging, does not fit the criteria for syndrome X. However, hi s history does suggest microvascular angina, he will continue with medical management. 2. Normal LV systolic function. 3. Unremarkable left-sided hemodynamics. 4. Successful right radial artery access. [id number]/[facility] #: [id number]
== END | disposition home or self-care (01) ==
LOC: CHICATH 10:20
PROVIDERS: ATTEND Internal Medicine Cardiovascular Disease
DX: I20.8 Other forms of angina pectoris (principal); R60.9 Edema, unspecified; E78.00 Pure hypercholesterolemia, unspecified; I10 Essential (primary) hypertension; I48.0 Paroxysmal atrial fibrillation; G47.33 Obstructive sleep apnea (adult) (pediatric); I47.1 Supraventricular tachycardia
CPT/HCPCS: 93458; 99156; 99157; J1644; J2250; J3010

== ENCOUNTER 2019-05-12 08:26 | Day surgery (SDC) | payer MEDICARE ==
[~2019-05-12 08:26] MED LIST changes: +Buffered Lidocaine 1% SYRIN* 1 ML/SYRINGE INTRADERM ONE; +Bupivacaine 0.25% SDV PF* 10 ML VIAL INJ ONE; -Heparin 2 UNITS/ML IVPREMIX* 2,000 ML IV ONE; -Heparin(*) 1000 UNIT/ML 10 ML VIAL CATH LAB IV ONE; -Iohexol 350 (CONTRAST) 200 ML MDV IV ONE; +Lactated Ringers 1000 ML Bag* 1,000 ML IV SCH; -Midazolam* 1 MG/ML 5 ML VIAL (5 MG) ONE; -NS 0.9% 1000 ML** 1,000 ML IV SCH; -VERAPAMIL 2.5 MG/ML 2 ML VIAL ** 5 mg/2 ml ONE; +ceFAZolin 2 GM PREMIX in ORs 2 GM/50 ML BAG ONE; -fentaNYL* 50 MCG/ML 2 ML VIAL (100 MCG VIAL) ONE; -nitroGLYCERIN DRIP* 25,000 MCG/250 ML BTL ONE
[2019-05-12] MEDS ORDERED: Midazolam* 1 MG/ML 2 ML VIAL (2 MG) ONE ×2 (08:34→09:24)
[2019-05-12] MEDS ORDERED: fentaNYL* 50 MCG/ML 2 ML VIAL (100 MCG VIAL) ONE (08:34)
[2019-05-12] MEDS ORDERED: Lidocaine 2% PF * 5 ML VIAL ONE (08:39)
[2019-05-12] MEDS ORDERED: Propofol* 10 MG/ML 20 ML BTL ONE (08:39)
[2019-05-12] MEDS ORDERED: Naloxone* 0.4 MG/ML 1 ML VIAL IV PRN (09:04)
[2019-05-12] MEDS ORDERED: Lidocaine 1% w EPI 1:200,000* SDV 30 ML VIAL ONE (09:40)
[2019-05-12 12:32] VITALS: BP 122/62
--- NOTE | 2019-05-12 14:41 | OP ---
DATE OF OPERATION: 05/12/19 - OR VEAST DATE OF : 48 SURGEON: Aung Alas MD KNITTING SUPERVISOR: TABITHA Ahn. An assistant store manager was needed for the procedure to aid in positioning of the arm and retraction. ANESTHESIOLOGIST: Dr. White. ANESTHESIA: Local MAC. PRE-OP DIAGNOSIS: Left ring finger flexor tendon adhesions. POST-OP DIAGNOSIS: Left ring finger flexor tendon adhesions. OPERATIVE PROCEDURE: Left ring finger flexor tendon tenolysis in the palm and finger. INDICATIONS: Mr. Rivera had the injury a while back. He then worked with therapy. He then got introduced to my practice when he had plateaued and he was quite stiff. I did some extension contracture releases and those well healed up and he has regained most but not quite all of his passive motion, but he has plateaued. He has about 90 to 100 degrees of PIP flexion passively. I told him that I think we have made as much progress as we could and we could attempt the tenolysis now. He understands that he is likely to achieve an incomplete result and the need for aggressive physical therapy afterwards. He understands the risks of tendon rupture, risks of stiffness worse than when he started the surgery, neurovascular injury, etc. He wishes to proceed. ESTIMATED BLOOD LOSS: 10 mL. COMPLICATIONS: None. FINDINGS: There is a lot of adhesions from the A2 brice all the way down to the insertion of the FDP tendon. DESCRIPTION OF PROCEDURE: Mr. Rivera was seen in the preoperative holding area. The correct site, side, and procedures were identified. We came back to the operating room where the arm was prepped and draped in the usual fashion. I injected 0.25% plain Marcaine. A time-out was performed. I then exsanguinated the arm and elevated the forearm tourniquet to 200 mmHg. I made a V-shaped flap over the A1 brice. He has Dupuytren's tissue that was excised. Full-thickness flaps were raised off the A1 brice. I made a V- shaped ulnarly based flap over the PIP joint as well in like manner raised a full- thickness flap off the tendon sheath. I then released transversely the A3 brice and just excised little bit of a very scarred tendon sheath there. There was a lot of adhesions. I used a combination of a grand ronde tribes blade and the tenolysis knife to release the adhesions circumferentially around the FDP and the FDS tendons preserving the insertion of the FDS tendons on the base of the middle phalanx. I then released little bit of the A1 brice and in like manner I released all the adhesion proximally with the tenolysis knife, both in the palm and down through the finger. Lastly, he still did not have all of his FDP pull through, so I made a raised V - shaped flap off of the DIP joint flexion crease. I released little bit of the A5 brice. I then released lot of adhesions underneath the A4 rbice and around the volar plate. There were lot of adhesions both between the sheath and the tendon and between the bone and tendon. Once I had released all of those adhesions, I unflexed the finger down. He had probably 60 to 70 degrees of active DIP joint flexion and we had achieved full PIP joint flexion to the extent that the joint was supple, which was about 90 to 100 degrees. When he made a fist, the finger stayed out just a little bit farther than the other fingers. At this pint, we could no better. We had really solved the adhesions. I had any adhesions between the tendons. I thought everything was looking very good. We had let down the tourniquet and I put just 1% of lidocaine with epinephrine around each incision. We had good hemostasis. We irrigated out the wound. The skin was closed with nylon suture. Very soft gauze and Tegaderm dressing was applied over each incision. He was taken to the recovery room. POSTOPERATIVE PLAN: He is good to continue moving the finger right away from day 1. He is going to go to Therapy next couple days. I am going to see him back in a week and a half. He understands that he has to work very hard to preserve any and all motion that we gained in the operating room today. [id number]/[facility] #: [id number] KINZA
== END 2019-05-12 11:15 | disposition home or self-care (01) ==
LOC: OREAST 08:26
PROVIDERS: ATTEND Orthopaedic Surgery Hand Surgery
DX: M65.842 Other synovitis and tenosynovitis, left hand (principal); S62.62 Displaced fracture of middle phalanx of finger; I10 Essential (primary) hypertension; I48.0 Paroxysmal atrial fibrillation; G47.33 Obstructive sleep apnea (adult) (pediatric); X58.XXXS Exposure to other specified factors, sequela; Y92.9 Unspecified place or not applicable
CPT/HCPCS: J0690; J2001; J2250; J2704; J3010; J3490

== ENCOUNTER 2023-03-22 11:43 | Inpatient (IN) ==
[2023-03-22] MEDS ORDERED: NS 0.9% 1000 ml BAG 1,000 ML IV ONE (13:31)
[2023-03-22 15:12] LABS: Hemoglobin 8.8 g/dL (13.2-16.3); Mean Corpuscular Hemoglobin 32.1 pg (27-33); Mean Corpuscular Hgb Conc 35.2 g/dL (31-36); Mean Corpuscular Volume 91.1 fL (80-97); Mean Platelet Volume 8.5 fL (7.5-11.2); Platelet Count 163 10^3/uL (150-450); Red Blood Count 2.74 10^6/uL (4.06-5.63); White Blood Count 2.4 10^3/uL (3.6-10.2)
[2023-03-22] MEDS ORDERED: Iohexol 300 (CONTRAST) 10 ML SDV IV ONE (15:12)
[2023-03-22] MEDS ORDERED: Azithromycin 500 mg/250 ml NS 500 MG/250 ML BAG IVPB ONE (15:38)
[2023-03-22 15:39] LABS: Albumin 3.5 g/dL (3.2-5.2); Calcium 8.2 mg/dL (8.6-10.3); Potassium 4.5 mmol/L (3.5-5.0); Total Bilirubin 0.8 mg/dL (0.2-1.0)
[2023-03-22 15:45] LABS: Albumin/Globulin Ratio 1.3 (1-3); C Reactive Protein 22.75 mg/L (<8.01); Creatinine, Serum 0.91 mg/dL (0.67-1.17); Globulin 2.7 g/dL (2-4); Phosphorus 3.7 mg/dL (2.5-5.0); Total Protein 6.2 g/dL (6.4-8.9)
[2023-03-22 15:48] LABS: ABS Monocytes 0.3 10^3/uL (0.0-1.1); ABS Nucleated RBC 0.02 10^3/ul; Eosinophil % 0.3 %; Nucleated Red Blood Cells % 0.6 /100 WBC (0.0-0.4); RBC Morphology Normal (Normal)
[2023-03-22 16:11] LABS: RBC Parasite Smear POSITIVE (No Parasite)
[2023-03-22] MEDS ORDERED: Lactated Ringers 1000 ml BAG 1,000 ML IV ONE (17:11)
[2023-03-22] MEDS ORDERED: Enoxaparin 40 MG/0.4 ML SYR SUBCUT SCH (18:00)
[2023-03-22 20:39] LABS: Urine Appearance Clear; Urine Bilirubin Negative (Negative); Urine Blood Negative (Negative); Urine Color Yellow; Urine Glucose Negative (Negative); Urine Ketones Negative (Negative); Urine Nitrite Negative (Negative); Urine Protein Negative (Negative); Urine Specific Gravity 1.042 (1.002-1.030); Urine Urobilinogen Negative (Negative)
[2023-03-22 20:49] LABS: High Sensitivity Troponin 1 Hr 5 pg/mL (<20)
[2023-03-23 07:27] LABS: Hematocrit 23.3 % (38-53); Hemoglobin 8.1 g/dL (13.2-16.3); Mean Corpuscular Hemoglobin 31.6 pg (27-33); Mean Corpuscular Hgb Conc 34.7 g/dL (31-36); Mean Corpuscular Volume 91.1 fL (80-97); Mean Platelet Volume 8.5 fL (7.5-11.2); Platelet Count 162 10^3/uL (150-450); Red Blood Count 2.56 10^6/uL (4.06-5.63); White Blood Count 2.6 10^3/uL (3.6-10.2)
[2023-03-23 07:43] LABS: Calcium 7.8 mg/dL (8.6-10.3); Creatinine, Serum 0.91 mg/dL (0.67-1.17); Magnesium 1.9 mg/dL (1.9-2.7); Potassium 4.3 mmol/L (3.5-5.0)
[2023-03-23 08:21] LABS: Polychromasia 1+
[2023-03-23 08:23] LABS: ABS Lymphocytes 1.4 10^3/uL (1.0-4.8); ABS Monocytes 0.4 10^3/uL (0.0-1.1); ABS Neutrophils 0.7 10^3/uL (1.5-7.6); ABS Nucleated RBC 0.01 10^3/ul; Eosinophil % 0.6 %; Lymphocyte % 53.8 %; Nucleated Red Blood Cells % 0.5 /100 WBC (0.0-0.4)
[2023-03-23 13:27] LABS: Hemoglobin 9.3 g/dL (13.2-16.3)
[2023-03-23 14:10] VITALS: BP 99/58
[2023-03-23] MEDS ORDERED: Azithromycin 500 mg/250 ml NS 500 MG/250 ML BAG IVPB SCH (15:00)
== END 2023-03-23 16:40 | disposition home or self-care (01) | DRG 868 ==
LOC: EDHOLD 11:43 → ED 11:43 → SUATTDRO 17:03 → SSU 19:00
PROVIDERS: ADMIT Pediatrics; ATTEND Internal Medicine